=== PATIENT | female | born 1960 | race Caucasian/White ===

== ENCOUNTER 2019-05-01 03:37 | Inpatient (IN) | payer OTHER ==
[2019-05-01 04:44] VITALS: BMI 23.0
[2019-05-01] MEDS ORDERED: ACETAMINOPHEN 1000 MG/100 ML VIAL (NON FORMULARY) IVPB ONE (05:31)
[2019-05-01] MEDS ORDERED: SODIUM CHLORIDE 1,000 ML IV STA (05:31)
[2019-05-01] MEDS ORDERED: ONDANSETRON 4 MG/2 ML VIAL IVPB ONE (05:57)
--- NOTE | 2019-05-01 05:57 | PDOC ---
Attending Attestation - Resident Resident Name: Lake Ferrari - ED Attending Attestation I have performed the following: I have examined & evaluated the patient, The case was reviewed & discussed with the resident, I agree w/resident's findings & plan, Exceptions are as noted - HPI HPI: 05/01/19 05:54 58 F with h/o hypothyroid presenting with R sided abdominal and flank pain. Pt states that she awoke suddenly this morning with pain in her R upper abdomen radiating around her R side to her R flank. Endorses nausea without vomiting. Pt states she had a fever of 102 last night but took tylenol. Denies diarrhea/ constipation. Denies CP/SOB. Denies dysuria. Only previous surgery was a hysterectomy. - Physicial Exam PE: 05/01/19 05:56 "GENERAL: Awake, alert, and fully oriented, in no acute distress. HEAD: No signs of trauma EYES: PERRLA, EOMI, sclera anicteric, conjunctiva clear ENT: Auricles normal inspection, hearing grossly normal, nares patent, oropharynx clear without exudates. Moist mucosa NECK: Nontender, no stepoffs, Normal ROM, supple, no lymphadenopathy, JVD, or masses LUNGS: Breath sounds equal, clear to auscultation bilaterally. No wheezes, and no crackles HEART: Regular rate and rhythm, normal S1 and S2, no murmurs, rubs or gallops ABDOMEN: + RUQ TTP, + RLQ TTP, normoactive bowel sounds. No guarding, no rebound. No masses EXTREMITIES: Normal range of motion, no edema. No clubbing or cyanosis. No cords, erythema, or tenderness NEUROLOGICAL: Cranial nerves II through XII intact. 5/5 strength and sensation in all extremities, Normal speech, normal gait, normal cerebellar function SKIN: Warm, Dry, normal turgor, no rashes or lesions noted. - Medical Decision Making 05/01/19 05:56 58 F with R sided abdominal pain. Tender in both RLQ and RUQ, though more pronounced in RUQ. Will r/o cholecystitis. Also consider appendicitis. - Labs, UA - RUQ sono - CT if indicated - IVF, pain control
[2019-05-01] MEDS ORDERED: ACETAMINOPHEN INJECTION 100 ML IVPB ONE (06:05)
[2019-05-01] MEDS ORDERED: ONDANSETRON 4 MG/2 ML VIAL ONE (06:05)
[2019-05-01 06:30] LABS: BASO % 0.4 % (0-2.0); EOS % 0.3 % (0-4.5); HEMATOCRIT 44.9 % (32.4-45.2); HEMOGLOBIN 14.9 GM/dL (10.7-15.3); LYMPH % 15.3 % (8-40); MCH 29.2 pg (25.7-33.7); MCHC 33.2 g/dl (32.0-36.0); MEAN CELL VOLUME 88.1 fl (80-96); MEAN PLT VOLUME 10.1 fl (7.5-11.1); MONO % 7.7 % (3.8-10.2); NEUT % 76.3 % (42.8-82.8); PLATELET COUNT 189 K/MM3 (134-434); RDW 13.5 % (11.6-15.6)
[2019-05-01 06:43] LABS: ACTIVATED PTT 35.1 SECONDS (25.2-36.5)
[2019-05-01 06:58] LABS: ALBUMIN 4.5 g/dl (3.4-5.0); BILIRUBIN,TOTAL 1.3 mg/dL (0.2-1); BLOOD UREA NITROGEN 14.2 mg/dL (7-18); CALCIUM 9.4 mg/dL (8.5-10.1); CREATININE 0.9 mg/dL (0.55-1.3); POTASSIUM 3.7 mmol/L (3.5-5.1); TOT PROT 7.9 g/dl (6.4-8.2)
--- NOTE | 2019-05-01 07:20 | PDOC ---
*Physical Exam - Vital Signs Last Vital Signs Temp Pulse Resp BP Pulse Ox 98.0 F 62 18 120/62 99 05/01/19 04:37 05/01/19 04:37 05/01/19 04:37 05/01/19 04:37 05/01/19 04:37 - Physical Exam General Appearance: Yes: Nourished, Appropriately Dressed. No: Apparent Distress HEENT: positive: EOMI, AALIYAH, Normal Voice, Symmetrical. negative: Scleral Icterus (R), Scleral Icterus (L) Neck: positive: Normal Thyroid, Supple. negative: Decreased range of motion, Lymphadenopathy (R), Lymphadenopathy (L) Respiratory/Chest: positive: Lungs Clear, Normal Breath Sounds. negative: Respiratory Distress, Accessory Muscle Use, Crackles, Rales, Rhonchi Cardiovascular: positive: Regular Rhythm, Regular Rate Gastrointestinal/Abdominal: positive: Tender (RUQ tenderness, + Montiel'sign), Flat, Soft. negative: Guarding, Rebound, Hernia Musculoskeletal: positive: Normal Inspection. negative: CVA Tenderness Extremity: positive: Normal Capillary Refill, Normal Inspection Integumentary: positive: Normal Color, Dry, Warm Neurologic: positive: Fully Oriented, Alert, Normal Mood/Affect, Normal Response ED Treatment Course - LABORATORY CBC & Chemistry Diagram: 05/01/19 06:00 05/01/19 06:00 - ADDITIONAL ORDERS Additional order review: Laboratory Results 05/01/19 05/01/19 05/01/19 06:00 06:00 06:00 PTT (Actin FS) 35.1 Sodium 141 Potassium 3.7 Chloride 105 Carbon Dioxide 28 Anion Gap 8 BUN 14.2 Creatinine 0.9 Est GFR (CKD-EPI)AfAm 82.84 Est GFR (CKD-EPI)NonAf 71.48 Random Glucose 120 H Calcium 9.4 Total Bilirubin 1.3 H AST 15 ALT 18 Alkaline Phosphatase 104 Total Protein 7.9 Albumin 4.5 Lipase 116 05/01/19 06:00 RBC 5.10 MCV 88.1 MCHC 33.2 RDW 13.5 MPV 10.1 Neutrophils % 76.3 Lymphocytes % 15.3 D Monocytes % 7.7 Eosinophils % 0.3 Basophils % 0.4 - Medications Given in the ED: ED Medications Discontinued Medications Generic Name Dose Route Start Last Admin Trade Name Freq PRN Reason Stop Dose Admin Acetaminophen 1,000 mg 05/01/19 05:31 05/01/19 06:16 Ofirmev Injection - IVPB 05/01/19 05:32 1,000 mg ONCE ONE Administration Sodium Chloride 1,000 mls @ 1,000 mls/hr 05/01/19 05:31 05/01/19 06:16 Normal Saline - IV 05/01/19 06:30 1,000 mls/hr ASDIR STA Administration Ondansetron HCl 4 mg 05/01/19 05:57 05/01/19 06:17 Zofran Injection IVPB 05/01/19 05:58 4 mg ONCE ONE Administration Medical Decision Making - Medical Decision Making 05/01/19 07:18 Signed out to me by Dr. Ferrari. Patient is a 58F presenting with R-sided abdominal pain with nausea and no vomiting. Tender to RUQ/RLQ. Concerned for pyelo/renal stones/gallbladder/liver pathology. Bedside US shows evidence of GB wall thickening with no stones. Needs formal RUQ US for complete evaluation of GB. If negative, needs CT abd/ pelvis with contrast. Labs notable for Tbili elevated to 1.3, remaining labs WNL. 05/01/19 09:03 RUQ US: The liver has an unremarkable size, shape and echotexture, without sonographically detected focal abnormality. There is no intrahepatic bile or duct dilatation. There is normal antegrade portal venous flow. There are multiple tiny echogenic foci within the gallbladder which could represent tiny gallstones. These do not demonstrate definite posterior acoustic shadowing. There is no gallbladder wall thickening or pericholecystic fluid. The sonographic Montiel's sign was negative. The common bile duct measures 0.4 cm in diameter. There is no ascites. The right kidney measures 9.1 x 5.0 x 3.8 cm in diameter and has not unremarkable sonographic appearance without sonographically detected focal abnormality. Impression: 1. Multiple tiny echogenic foci within the gallbladder lumen which could represent tiny gallstones. 2. Otherwise, unremarkable right upper quadrant abdominal sonogram Patient at CT scan for further evaluation. No elevated WBC or fever. However, concern still high for cholecystitis given + bedside sonographic Montiel's sign and presence of possible stones. 05/01/19 09:05 UA shows 2+ ketones, 1+ blood, + nitrites, >8000 bacteria consistent with UTI. Will treat for UTI pending CT read. 05/01/19 10:09 CT shows evidence of stones with acute cholecystitis. Discussed surgical planning with Dr. Davis, NPO after midnight, IVF, ABx, and admission to Hospitalist. Discussed admission to Med-Surg with Dr. Layton under Dr. Yousif. Will start IV Zosyn 4.5mg. Discharge - Discharge Information Problems reviewed: Yes Clinical Impression/Diagnosis: Acute calculous cholecystitis Condition: Stable - Admission Yes - Follow up/Referral - Patient Discharge Instructions - Post Discharge Activity
[2019-05-01 08:20] LABS: INR 1.07 (0.83-1.09); PROTHROMBIN TIME (PATIENT) 12.6 SEC (9.7-13.0)
[2019-05-01 08:22] LABS: EPI CELLS 1.3 /HPF (0-5/HPF); HYALINE CASTS 1 /lpf (0-8); URINE APPEARANCE CLEAR; URINE BACTERIA 8587.6 /hpf (NEGATIVE); URINE BILIRUBIN NEGATIVE (NEGATIVE); URINE COLOR YELLOW; URINE GLUCOSE (UA) NEGATIVE (NEGATIVE); URINE KETONE 2+ (NEGATIVE); URINE LEUK ESTERASE NEGATIVE (NEGATIVE); URINE NITRITE POSITIVE (NEGATIVE); URINE PROTEIN NEGATIVE (NEGATIVE); URINE RBC 5 /hpf (0-4); URINE UROBILINOGEN 0.2 mg/dL (0.2-1.0); URINE WBC 2 /hpf (0-5)
[2019-05-01 08:36] LABS: HCG,QUALITATIVE URINE Negative
--- NOTE | 2019-05-01 08:52 | PDOC ---
*Physical Exam - Vital Signs Last Vital Signs Temp Pulse Resp BP Pulse Ox 98.0 F 62 18 120/62 99 05/01/19 04:37 05/01/19 04:37 05/01/19 04:37 05/01/19 04:37 05/01/19 04:37 - Physical Exam Comments: 05/01/19 08:49 Awake alert no acute distress lungs are clear bilaterally heart is regular without murmurs rubs or gallops abdomen is noted for right upper quadrant tenderness there is no CVA tenderness otherwise nontender no rebound no guarding awake alert oriented x3 ED Treatment Course - LABORATORY CBC & Chemistry Diagram: 05/01/19 06:00 05/01/19 06:00 - ADDITIONAL ORDERS Additional order review: Laboratory Results 05/01/19 05/01/19 05/01/19 08:04 06:00 06:00 PT with INR INR PTT (Actin FS) Sodium 141 Potassium 3.7 Chloride 105 Carbon Dioxide 28 Anion Gap 8 BUN 14.2 Creatinine 0.9 Est GFR (CKD-EPI)AfAm 82.84 Est GFR (CKD-EPI)NonAf 71.48 Random Glucose 120 H Calcium 9.4 Total Bilirubin 1.3 H AST 15 ALT 18 Alkaline Phosphatase 104 Total Protein 7.9 Albumin 4.5 Lipase 116 Urine Color Yellow Urine Appearance Clear Urine pH 6.0 Ur Specific [place] 1.022 Urine Protein Negative Urine Glucose (UA) Negative Urine Ketones 2+ H Urine Blood 1+ H Urine Nitrite Positive H Urine Bilirubin Negative Urine Urobilinogen 0.2 Ur Leukocyte Esterase Negative Urine WBC (Auto) 2 Urine RBC (Auto) 5 Urine Casts (Auto) 1 U Epithel Cells (Auto) 1.3 Urine Bacteria (Auto) 8587.6 Urine HCG, Qual Negative 05/01/19 06:00 PT with INR 12.60 INR 1.07 PTT (Actin FS) 35.1 Sodium Potassium Chloride Carbon Dioxide Anion Gap BUN Creatinine Est GFR (CKD-EPI)AfAm Est GFR (CKD-EPI)NonAf Random Glucose Calcium Total Bilirubin AST ALT Alkaline Phosphatase Total Protein Albumin Lipase Urine Color Urine Appearance Urine pH Ur Specific [place] Urine Protein Urine Glucose (UA) Urine Ketones Urine Blood Urine Nitrite Urine Bilirubin Urine Urobilinogen Ur Leukocyte Esterase Urine WBC (Auto) Urine RBC (Auto) Urine Casts (Auto) U Epithel Cells (Auto) Urine Bacteria (Auto) Urine HCG, Qual 05/01/19 06:00 RBC 5.10 MCV 88.1 MCHC 33.2 RDW 13.5 MPV 10.1 Neutrophils % 76.3 Lymphocytes % 15.3 D Monocytes % 7.7 Eosinophils % 0.3 Basophils % 0.4 - Medications Given in the ED: ED Medications Discontinued Medications Generic Name Dose Route Start Last Admin Trade Name [place] PRN Reason Stop Dose Admin Acetaminophen 1,000 mg 05/01/19 05:31 05/01/19 06:16 Ofirmev Injection - IVPB 05/01/19 05:32 1,000 mg ONCE ONE Administration Sodium Chloride 1,000 mls @ 1,000 mls/hr 05/01/19 05:31 05/01/19 06:16 Normal Saline - IV 05/01/19 06:30 1,000 mls/hr ASDIR STA Administration Ondansetron HCl 4 mg 05/01/19 05:57 05/01/19 06:17 Zofran Injection IVPB 05/01/19 05:58 4 mg ONCE ONE Administration Medical Decision Making - Medical Decision Making 05/01/19 08:50 58-year-old female here today complaining of right upper quadrant pain and nausea. Signed out to me by the night team ice and care of the patient at 7 AM was pending an ultrasound. I did a unofficial screening bedside ultrasound which demonstrated a normal wall there was trace wall edema however the patient did have stones and sludge mildly distended gallbladder measuring 10 x 3 cm CBD was normal at 5 mm. She did have a sonographic Montiel's radiology ultrasound is pending labs were noted to have a mild T bili elevation otherwise LFTs were normal there is no white count CT abdomen pelvis was added to the patient has a history of multiple abdominal surgeries. Will likely consult surgery for possible cholecystitis based on ultrasound and exam findings 05/01/19 14:23 radiology ultrasound shows cholelithiasis. ct a/p confirms possible cholecystitis. pt given zosyn, consulted DR Davis request NPO post midnight. OR day following. Discharge - Discharge Information Problems reviewed: Yes Clinical Impression/Diagnosis: Acute calculous cholecystitis Condition: Stable - Follow up/Referral - Patient Discharge Instructions - Post Discharge Activity
[2019-05-01] MEDS ORDERED: LEVOTHYROXINE NA 75 MCG TABLET (FP) PO SCH (10:00)
[2019-05-01] MEDS ORDERED: PIPERACILLIN/TAZOB 4.5 GM 4.5 GM in DEXTROSE 5%-WATER 100 ML IVPB ONE (10:07)
[2019-05-01] MEDS ORDERED: morphine CARPU-JECT 4 MG/1 ML DISP.SYRIN IVPUSH ONE (10:14)
[2019-05-01] MEDS ORDERED: morphine SULFATE 4 MG/ML VIAL ONE (10:21)
[2019-05-01] MEDS ORDERED: PIPERACILLIN/TAZOB 4.5 GM 4.5 GM/100 ML BAG IVPB ONE (10:22)
--- NOTE | 2019-05-01 10:25 | CONSULT ---
- Consultation REQUESTING PROVIDER: Sp Nunes MD CONSULT REQUEST: We have been asked to surgically evaluate this patient for symptomatic biliary tract disease. PCP:Wero Patel HISTORY OF PRESENT ILLNESS: KARLI who is a 58 y/o female who presented to the [facility] ED w/ right sided abdominal and flank pain. Pt states that she awoke suddenly this morning with pain in her right upper abdomen radiating around her R side to her R flank. She hasnausea without vomiting. Pt states she had a fever of 102 last night but took tylenol. Denies diarrhea/constipation. Denies CP/SOB. Denies dysuria. Only previous surgery was a hysterectomy. She denies dark urine/light stools and has no other GI//[employer] c/o. PMHx: thyroid disease/NIDDM/GERD PSHx: LUCIAN Home Medications Medication Instructions Recorded Levothyroxine [Synthroid -] 75 mcg PO DAILY 12/05/12 Metoclopramide HCl 5 mg PO TID PRN 05/01/19 Pantoprazole Sodium [Protonix] 40 mg PO DAILY 05/01/19 Allergies Allergy/AdvReac Type Severity Reaction Status Date / Time No Known Allergies Allergy Verified 05/01/19 04:41 REVIEW OF SYSTEMS: CONSTITUTIONAL: Absent: fever, chills, diaphoresis, generalized weakness, malaise, loss of appetite, weight change CARDIOVASCULAR: Absent: chest pain, syncope, palpitations, irregular heart rate, lightheadedness , peripheral edema RESPIRATORY: Absent: cough, shortness of breath, dyspnea with exertion, wheezing, stridor, hemoptysis GASTROINTESTINAL: Present: abdominal pain, abdominal distension, nausea, vomiting, GENITOURINARY: Absent: dysuria, frequency, urgency, hesitancy, hematuria, flank pain, genital pain MUSCULOSKELETAL: Absent: myalgia, arthralgia, joint swelling, back pain, neck pain SKIN: Absent: rash, itching, pallor HEMATOLOGIC/IMMUNOLOGIC: Absent: easy bleeding, easy bruising, lymphadenopathy NEUROLOGIC: Absent: headache, focal weakness, paresthesias, dizziness, unsteady gait, seizure, mental status changes, bladder or bowel incontinence PSYCHIATRIC: Absent: anxiety, depression, suicidal or homicidal ideation, hallucinations. PHYSICAL EXAM: GENERAL: Awake, alert, and fully oriented, in no acute distress. HEAD: Normal with no signs of trauma. EYES: , sclera anicteric, conjunctiva clear. NECK: Normal ROM, supple without lymphadenopathy, JVD, or masses. ABDOMEN: Soft, tender RUQ, not distended, normoactive bowel sounds, no guarding , no rebound, no masses. No organomegaly. No hernias. MUSCULOSKELETAL: Normal ROM at all joints. No bony deformities or tenderness. No CVA tenderness. UPPER EXTREMITIES: 2+ pulses, warm, well-perfused. No cyanosis. Cap refill <2 seconds. No peripheral edema. LOWER EXTREMITIES: 2+ pulses, warm, well-perfused. No calf tenderness. No peripheral edema. NEUROLOGICAL: Normal speech, gait not observed. PSYCH: Cooperative. Good eye contact. Appropriate mood and affect. SKIN: Warm, dry, normal turgor, no rashes or lesions noted. Vital Signs Temperature 97.6 F 05/01/19 09:59 Pulse Rate 72 05/01/19 09:59 Respiratory Rate 16 05/01/19 09:59 Blood Pressure 132/79 05/01/19 09:59 O2 Sat by Pulse Oximetry (%) 100 05/01/19 09:59 Lab Results WBC 9.0 K/mm3 (4.0-10.0) 05/01/19 06:00 RBC 5.10 M/mm3 (3.60-5.2) 05/01/19 06:00 Hgb 14.9 GM/dL (10.7-15.3) 05/01/19 06:00 Hct 44.9 % (32.4-45.2) 05/01/19 06:00 MCV 88.1 fl (80-96) 05/01/19 06:00 MCHC 33.2 g/dl (32.0-36.0) 05/01/19 06:00 RDW 13.5 % (11.6-15.6) 05/01/19 06:00 Plt Count 189 K/MM3 (134-434) 05/01/19 06:00 Sodium 141 mmol/L (136-145) 05/01/19 06:00 Potassium 3.7 mmol/L (3.5-5.1) 05/01/19 06:00 Chloride 105 mmol/L (98-107) 05/01/19 06:00 Carbon Dioxide 28 mmol/L (21-32) 05/01/19 06:00 Anion Gap 8 MMOL/L (8-16) 05/01/19 06:00 BUN 14.2 mg/dL (7-18) 05/01/19 06:00 Creatinine 0.9 mg/dL (0.55-1.3) 05/01/19 06:00 Random Glucose 120 mg/dL (74-106) H 05/01/19 06:00 Calcium 9.4 mg/dL (8.5-10.1) 05/01/19 06:00 Blood Type A POSITIVE 05/01/19 06:00 Antibody Screen Negative 05/01/19 06:00 INR 1.07 (0.83-1.09) 05/01/19 06:00 CT scan a/p and US abdomen reviewed IMP: acute cholecystitis/cholellithiasis PLAN: NPO/IVF/IVABS and plan for lap samuel possible open 05/01/19; HIDA scan is not needed; I discussed this with the patient and her daughter in [place]. Federico Davis MD FACS
[2019-05-01] MEDS ORDERED: ONDANSETRON 4 MG/2 ML VIAL IVPUSH PRN (10:43)
--- NOTE | 2019-05-01 10:43 | CONSULT ---
Consultation: REQUESTING PROVIDER: CONSULT REQUEST: We have been asked to medically evaluate this patient for ( specify). HISTORY OF PRESENT ILLNESS: REVIEW OF SYSTEMS: CONSTITUTIONAL: Absent: fever, chills, diaphoresis, generalized weakness, malaise, loss of appetite, weight change HEENT: Absent: rhinorrhea, nasal congestion, throat pain, throat swelling, difficulty swallowing, mouth swelling, ear pain, eye pain, visual changes CARDIOVASCULAR: Absent: chest pain, syncope, palpitations, irregular heart rate, lightheadedness , peripheral edema RESPIRATORY: Absent: cough, shortness of breath, dyspnea with exertion, orthopnea, wheezing, stridor, hemoptysis GASTROINTESTINAL: Absent: abdominal pain, abdominal distension, nausea, vomiting, diarrhea, constipation, melena, hematochezia GENITOURINARY: Absent: dysuria, frequency, urgency, hesitancy, hematuria, flank pain, genital pain MUSCULOSKELETAL: Absent: myalgia, arthralgia, joint swelling, back pain, neck pain SKIN: Absent: rash, itching, pallor HEMATOLOGIC/IMMUNOLOGIC: Absent: easy bleeding, easy bruising, lymphadenopathy, frequent infections ENDOCRINE: Absent: unexplained weight gain, unexplained weight loss, heat intolerance, cold intolerance NEUROLOGIC: Absent: headache, focal weakness or paresthesias, dizziness, unsteady gait, seizure, mental status changes, bladder or bowel incontinence PSYCHIATRIC: Absent: anxiety, depression, suicidal or homicidal ideation, hallucinations. PHYSICAL EXAMINATION Vital Signs - 24 hr 05/01/19 05/01/19 04:37 09:59 Temperature 98.0 F 97.6 F Pulse Rate 62 Pulse Rate [ 72 Left] Respiratory 18 16 Rate Blood Pressure 120/62 Blood Pressure 132/79 [Right Arm] O2 Sat by Pulse 99 100 Oximetry (%) GENERAL: Awake, alert, and fully oriented, in no acute distress. HEAD: Normal with no signs of trauma. EYES: Pupils equal, round and reactive to light, extraocular movements intact, sclera anicteric, conjunctiva clear. No lid lag. EARS, NOSE, THROAT: Ears normal, nares patent, oropharynx clear without exudates. Moist mucous membranes. NECK: Normal range of motion, supple without lymphadenopathy, JVD, or masses. LUNGS: Breath sounds equal, clear to auscultation bilaterally. No wheezes, and no crackles. No accessory muscle use. HEART: Regular rate and rhythm, normal S1 and S2 without murmur, rub or gallop. ABDOMEN: Soft, nontender, not distended, normoactive bowel sounds, no guarding, no rebound, no masses. No hepatomegaly or splenomegaly. MUSCULOSKELETAL: Normal range of motion at all joints. No bony deformities or tenderness. No CVA tenderness. UPPER EXTREMITIES: 2+ pulses, warm, well-perfused. No cyanosis. No clubbing. Cap refill <2 seconds. No peripheral edema. LOWER EXTREMITIES: 2+ pulses, warm, well-perfused. No calf tenderness. No peripheral edema. NEUROLOGICAL: Cranial nerves II-XII intact. Normal speech. Normal gait. PSYCHIATRIC: Cooperative. Good eye contact. Appropriate mood and affect. SKIN: Warm, dry, normal turgor, no rashes or lesions noted. Laboratory Results - last 24 hr 05/01/19 05/01/19 05/01/19 06:00 06:00 06:00 WBC 9.0 RBC 5.10 Hgb 14.9 Hct 44.9 MCV 88.1 MCH 29.2 MCHC 33.2 RDW 13.5 Plt Count 189 MPV 10.1 Absolute Neuts (auto) 6.8 Neutrophils % 76.3 Lymphocytes % 15.3 D Monocytes % 7.7 Eosinophils % 0.3 Basophils % 0.4 Nucleated RBC % 0 PT with INR 12.60 INR 1.07 PTT (Actin FS) 35.1 Sodium 141 Potassium 3.7 Chloride 105 Carbon Dioxide 28 Anion Gap 8 BUN 14.2 Creatinine 0.9 Est GFR (CKD-EPI)AfAm 82.84 Est GFR (CKD-EPI)NonAf 71.48 Random Glucose 120 H Calcium 9.4 Total Bilirubin 1.3 H AST 15 ALT 18 Alkaline Phosphatase 104 Total Protein 7.9 Albumin 4.5 Lipase Urine Color Urine Appearance Urine pH Ur Specific [place] Urine Protein Urine Glucose (UA) Urine Ketones Urine Blood Urine Nitrite Urine Bilirubin Urine Urobilinogen Ur Leukocyte Esterase Urine WBC (Auto) Urine RBC (Auto) Urine Casts (Auto) U Epithel Cells (Auto) Urine Bacteria (Auto) Urine HCG, Qual Blood Type Antibody Screen 05/01/19 05/01/19 05/01/19 06:00 06:00 08:04 WBC RBC Hgb Hct MCV MCH MCHC RDW Plt Count MPV Absolute Neuts (auto) Neutrophils % Lymphocytes % Monocytes % Eosinophils % Basophils % Nucleated RBC % PT with INR INR PTT (Actin FS) Sodium Potassium Chloride Carbon Dioxide Anion Gap BUN Creatinine Est GFR (CKD-EPI)AfAm Est GFR (CKD-EPI)NonAf Random Glucose Calcium Total Bilirubin AST ALT Alkaline Phosphatase Total Protein Albumin Lipase 116 Urine Color Yellow Urine Appearance Clear Urine pH 6.0 Ur Specific [place] 1.022 Urine Protein Negative Urine Glucose (UA) Negative Urine Ketones 2+ H Urine Blood 1+ H Urine Nitrite Positive H Urine Bilirubin Negative Urine Urobilinogen 0.2 Ur Leukocyte Esterase Negative Urine WBC (Auto) 2 Urine RBC (Auto) 5 Urine Casts (Auto) 1 U Epithel Cells (Auto) 1.3 Urine Bacteria (Auto) 8587.6 Urine HCG, Qual Negative Blood Type A POSITIVE Antibody Screen Negative ASSESSMENT/PLAN: Dispo: We will continue to follow the patient. Thank you for this consultative opportunity. ATTENDING PHYSICIAN STATEMENT I saw and evaluated the patient. I reviewed the resident's note and discussed the case with the resident. I agree with the resident's findings and plan as documented. SUBJECTIVE: OBJECTIVE: ASSESSMENT AND PLAN:
--- NOTE | 2019-05-01 10:43 | HP ---
CHIEF COMPLAINT: RUQ abdominal pain HISTORY OF PRESENT ILLNESS: 58 year old female with a past medical history of hypothyroidism presents to the hospital for acute, 04/28, sharp right upper quadrant abdominal pain that began last night. Reports she had been experiencing mild RUQ pain for several months exacerbated by eating. States that the pain used to resolve on its own, however this time it was so severe and did not remit on its own. Reports severe nausea and dry heaves without overt vomiting. Denies chest pain, SOB, nausea, vomiting, diarrhea, fevers, chills. Denies recent travel or sick contacts. Reports that since coming in, her pain has notably improved. ER course was notable for: (1) CT abdomen/pelvis shows cholelithiasis with possible cholecystitis (2) (3) Recent Travel: denies PAST MEDICAL HISTORY: hypothyroidism PAST SURGICAL HISTORY: denies Social History: Smoking: denies Alcohol: denies Drugs: denies Family History: reported history of heart disease and DM in family, although unclear on specifics Allergies No Known Allergies Allergy (Verified 05/01/19 04:41) HOME MEDICATIONS: Home Medications Medication Instructions Recorded Levothyroxine [Synthroid -] 75 mcg PO DAILY 12/05/12 Metoclopramide HCl 5 mg PO TID PRN 05/01/19 Pantoprazole Sodium [Protonix] 40 mg PO DAILY 05/01/19 REVIEW OF SYSTEMS CONSTITUTIONAL: Absent: fever, chills, diaphoresis, generalized weakness, malaise, loss of appetite, weight change HEENT: Absent: rhinorrhea, nasal congestion, throat pain, throat swelling, difficulty swallowing, mouth swelling, ear pain, eye pain, visual changes CARDIOVASCULAR: Absent: chest pain, syncope, palpitations, irregular heart rate, lightheadedness , peripheral edema RESPIRATORY: Absent: cough, shortness of breath, dyspnea with exertion, orthopnea, wheezing, stridor, hemoptysis GASTROINTESTINAL: abdominal pain Absent:, abdominal distension, nausea, vomiting, diarrhea, constipation, melena , hematochezia GENITOURINARY: Absent: dysuria, frequency, urgency, hesitancy, hematuria, flank pain, genital pain MUSCULOSKELETAL: Absent: myalgia, arthralgia, joint swelling, back pain, neck pain SKIN: Absent: rash, itching, pallor HEMATOLOGIC/IMMUNOLOGIC: Absent: easy bleeding, easy bruising, lymphadenopathy, frequent infections ENDOCRINE: Absent: unexplained weight gain, unexplained weight loss, heat intolerance, cold intolerance NEUROLOGIC: Absent: headache, focal weakness or paresthesias, dizziness, unsteady gait, seizure, mental status changes, bladder or bowel incontinence PSYCHIATRIC: Absent: anxiety, depression, suicidal or homicidal ideation, hallucinations. PHYSICAL EXAMINATION Vital Signs - 24 hr 05/01/19 05/01/19 04:37 09:59 Temperature 98.0 F 97.6 F Pulse Rate 62 Pulse Rate [ 72 Left] Respiratory 18 16 Rate Blood Pressure 120/62 Blood Pressure 132/79 [Right Arm] O2 Sat by Pulse 99 100 Oximetry (%) GENERAL: A&Ox3, no acute distress EYES: PERRLA, EOMI ENT: Moist mucus membranes NECK: No JVD LUNGS: CTA, no wheezes HEART: RRR, no murmurs ABDOMEN: Soft, tender to palpation in the RUQ, bernal sign positive, BS present MUSCULOSKELETAL: No CVA Tenderness EXTREMITIES: 2+ pulses, no edema. NEUROLOGICAL: Cranial nerves II-XII intact. Laboratory Results - last 24 hr 05/01/19 05/01/19 05/01/19 06:00 06:00 06:00 WBC 9.0 RBC 5.10 Hgb 14.9 Hct 44.9 MCV 88.1 MCH 29.2 MCHC 33.2 RDW 13.5 Plt Count 189 MPV 10.1 Absolute Neuts (auto) 6.8 Neutrophils % 76.3 Lymphocytes % 15.3 D Monocytes % 7.7 Eosinophils % 0.3 Basophils % 0.4 Nucleated RBC % 0 PT with INR 12.60 INR 1.07 PTT (Actin FS) 35.1 Sodium 141 Potassium 3.7 Chloride 105 Carbon Dioxide 28 Anion Gap 8 BUN 14.2 Creatinine 0.9 Est GFR (CKD-EPI)AfAm 82.84 Est GFR (CKD-EPI)NonAf 71.48 Random Glucose 120 H Calcium 9.4 Total Bilirubin 1.3 H AST 15 ALT 18 Alkaline Phosphatase 104 Total Protein 7.9 Albumin 4.5 Lipase Urine Color Urine Appearance Urine pH Ur Specific [place] Urine Protein Urine Glucose (UA) Urine Ketones Urine Blood Urine Nitrite Urine Bilirubin Urine Urobilinogen Ur Leukocyte Esterase Urine WBC (Auto) Urine RBC (Auto) Urine Casts (Auto) U Epithel Cells (Auto) Urine Bacteria (Auto) Urine HCG, Qual Blood Type Antibody Screen 05/01/19 05/01/1905/01/19 06:00 06:00 08:04 WBC RBC Hgb Hct MCV MCH MCHC RDW Plt Count MPV Absolute Neuts (auto) Neutrophils % Lymphocytes % Monocytes % Eosinophils % Basophils % Nucleated RBC % PT with INR INR PTT (Actin FS) Sodium Potassium Chloride Carbon Dioxide Anion Gap BUN Creatinine Est GFR (CKD-EPI)AfAm Est GFR (CKD-EPI)NonAf Random Glucose Calcium Total Bilirubin AST ALT Alkaline Phosphatase Total Protein Albumin Lipase 116 Urine Color Yellow Urine Appearance Clear Urine pH 6.0 Ur Specific [place] 1.022 Urine Protein Negative Urine Glucose (UA) Negative Urine Ketones 2+ H Urine Blood 1+ H Urine Nitrite Positive H Urine Bilirubin Negative Urine Urobilinogen 0.2 Ur Leukocyte Esterase Negative Urine WBC (Auto) 2 Urine RBC (Auto) 5 Urine Casts (Auto) 1 U Epithel Cells (Auto) 1.3 Urine Bacteria (Auto) 8587.6 Urine HCG, Qual Negative Blood Type A POSITIVE Antibody Screen Negative ASSESSMENT/PLAN: 58 year old female with a past medical history of hypothyroidism presents to the hospital for acute, 04/28, sharp right upper quadrant abdominal pain that began last night. #Acute Cholecystitis: seen on CT with positive bernal sign -keep NPO -zosyn 3.375 q6h -Dr. Davis consulted -IVF LR 100cc/hr -pain control morphine 2mg Q4 PRN and tylenol -zofran for nausea #Hypothyroidism -continue synthroid #FEN -LR @ 100cc/hr -replete lytes as necessary -NPO for now pending surgery evaluation #Prophylaxis -SCDs #Disposition -admit med surg Visit type - Emergency Visit Emergency Visit: Yes ED Registration Date: 05/01/19 Care time: The patient presented to the Emergency Department on the above date and was hospitalized for further evaluation of their emergent condition. - New Patient This patient is new to me today: Yes Date on this admission: 05/01/19 - Critical Care Critical Care patient: No ATTENDING PHYSICIAN STATEMENT I saw and evaluated the patient. I reviewed the resident's note and discussed the case with the resident. I agree with the resident's findings and plan as documented. SUBJECTIVE: OBJECTIVE: ASSESSMENT AND PLAN:
[2019-05-01] MEDS ORDERED: PANTOPRAZOLE SODIUM 40 MG/100 ML BAG IVPB ONE (11:31)
[2019-05-01] MEDS: LACTATED RINGERS SOLUTION 1,000 ML IV SCH ×2 (11:36→19:38)
[2019-05-01] MEDS: PANTOPRAZOLE 40 MG TABLET (FP) PO SCH (11:36)
[2019-05-01] MEDS: MORPHINE SULFATE 2 MG/ML VIAL IVPUSH PRN ×2 (12:54→17:15)
--- NOTE | 2019-05-01 14:55 | PN ---
Teaching Attending Note Name of Resident: Alfred Layton ATTENDING PHYSICIAN STATEMENT I saw and evaluated the patient. I reviewed the resident's note and discussed the case with the resident. I agree with the resident's findings and plan as documented. SUBJECTIVE: Patient is a 58yo female with a past medical history of hypothyroidism presents to the hospital for having RUQ pain that began last night after eating beans and cheese. OBJECTIVE: Vital Signs Temperature 97.6 F 05/01/19 12:22 Pulse Rate 60 05/01/19 12:22 Respiratory Rate 16 05/01/19 12:22 Blood Pressure 143/76 05/01/19 12:22 O2 Sat by Pulse Oximetry (%) 100 05/01/19 12:22 GENERAL: The patient is awake, alert, and fully oriented, in no acute distress. HEAD: Normal with no signs of trauma. EYES: PERRL, extraocular movements intact, sclera anicteric, conjunctiva clear. ENT: Ears normal, oropharynx clear without exudates, moist mucous membranes. NECK: Trachea midline, full range of motion, supple. LUNGS: Breath sounds equal, clear to auscultation bilaterally, no wheezes, no crackles, no accessory muscle use. HEART: Regular rate and rhythm, S1, S2 without murmur, rub or gallop. ABDOMEN: Soft, RUQ pain ,+BS , no guarding, no rebound, no hepatosplenomegaly, no masses. EXTREMITIES: 2+ pulses, warm, well-perfused, no edema. NEUROLOGICAL: Cranial nerves II through XII grossly intact. Normal speech, gait not observed. PSYCH: Normal mood, normal affect. SKIN: Warm, dry, normal turgor, no rashes or lesions noted CBCD WBC 9.0 K/mm3 (4.0-10.0) 05/01/19 06:00 RBC 5.10 M/mm3 (3.60-5.2) 05/01/19 06:00 Hgb 14.9 GM/dL (10.7-15.3) 05/01/19 06:00 Hct 44.9 % (32.4-45.2) 05/01/19 06:00 MCV 88.1 fl (80-96) 05/01/19 06:00 MCHC 33.2 g/dl (32.0-36.0) 05/01/19 06:00 RDW 13.5 % (11.6-15.6) 05/01/19 06:00 Plt Count 189 K/MM3 (134-434) 05/01/19 06:00 MPV 10.1 fl (7.5-11.1) 05/01/19 06:00 CMP Sodium 141 mmol/L (136-145) 05/01/19 06:00 Potassium 3.7 mmol/L (3.5-5.1) 05/01/19 06:00 Chloride 105 mmol/L (98-107) 05/01/19 06:00 Carbon Dioxide 28 mmol/L (21-32) 05/01/19 06:00 Anion Gap 8 MMOL/L (8-16) 05/01/19 06:00 BUN 14.2 mg/dL (7-18) 05/01/19 06:00 Creatinine 0.9 mg/dL (0.55-1.3) 05/01/19 06:00 Random Glucose 120 mg/dL (74-106) H 05/01/19 06:00 Calcium 9.4 mg/dL (8.5-10.1) 05/01/19 06:00 Total Bilirubin 1.3 mg/dL (0.2-1) H 05/01/19 06:00 AST 15 U/L (15-37) 05/01/19 06:00 ALT 18 U/L (13-61) 05/01/19 06:00 Alkaline Phosphatase 104 U/L (45-117) 05/01/19 06:00 Total Protein 7.9 g/dl (6.4-8.2) 05/01/19 06:00 Albumin 4.5 g/dl (3.4-5.0) 05/01/19 06:00 Current Medications Generic Name Dose Route Start Last Admin Trade Name Freq PRN Reason Stop Dose Admin Acetaminophen 650 mg 05/01/19 10:43 Tylenol - PO Q4H PRN PAIN LEVEL 6-10 Lactated Ringer's 1,000 mls @ 100 mls/hr 05/01/19 10:45 05/01/19 11:36 Lactated Ringers Solution IV 05/02/19 20:44 100 mls/hr ASDIR LIZZY Administration Piperacillin Sod/Tazobactam 50 mls @ 100 mls/hr 05/01/19 15:00 Sod 3.375 gm/ Dextrose IVPB Q6H-IV [facility] Protocol Levothyroxine Sodium 75 mcg 05/02/19 07:00 Synthroid - PO DAILY@0700 [facility] Morphine Sulfate 2 mg 05/01/19 12:34 05/01/19 12:54 Morphine Sulfate IVPUSH 2 mg Q4H PRN Administration PAIN LEVEL 6-10 Ondansetron HCl 4 mg 05/01/19 10:43 Zofran Injection IVPUSH Q6H PRN NAUSEA Pantoprazole Sodium 40 mg 05/01/19 10:00 05/01/19 11:36 Protonix - PO 40 mg DAILY [facility] Administration Home Medications Medication Instructions Recorded Levothyroxine [Synthroid -] 75 mcg PO DAILY 12/05/12 Metoclopramide HCl 5 mg PO TID PRN 05/01/19 Pantoprazole Sodium [Protonix] 40 mg PO DAILY 05/01/19 ASSESSMENT AND PLAN: patient is a 58 year old female with a PMHx of hypothyroidism presents to the hospital for acute, 04/28, sharp right upper quadrant abdominal pain that began last night. #Acute Cholecystitis: keep NPO, zosyn 3.375 q6h, surgical cansult Dr. Davis , IVF LR 100cc/hr, going to OR in am , NPO after Midnight pain control morphine 2mg Q4 PRN and tylenol, zofran for nausea #Hypothyroidism: continue synthroid DVT Px: SCDs NPO after midnight
[2019-05-01] MEDS ORDERED: DEXTROSE 5%-WATER - 50 ML IVPB ONE (15:05)
[2019-05-01] MEDS ORDERED: PIPERACILLIN/TAZOBACTAM 3.375 GM VIAL IVPB ONE (15:05)
[2019-05-01] MEDS: PIPERACILLIN/TAZOB 3.375 GM 3.375 GM in DEXTROSE 5%-WATER - 50 ML IVPB SCH ×2 (15:08→20:17)
[2019-05-01] MEDS: ACETAMINOPHEN 325 MG TABLET (FP) PO PRN ×2 (19:48→23:59)
[2019-05-02] MEDS ORDERED: PIPERACILLIN/TAZOBACTAM 3.375 GM VIAL IVPB ONE ×2 (01:59→02:00)
[2019-05-02] MEDS ORDERED: DEXTROSE 5%-WATER - 50 ML IVPB ONE ×2 (01:59→02:01)
[2019-05-02] MEDS: PIPERACILLIN/TAZOB 3.375 GM 3.375 GM in DEXTROSE 5%-WATER - 50 ML IVPB SCH (02:39)
[2019-05-02] MEDS: MORPHINE SULFATE 2 MG/ML VIAL IVPUSH PRN ×2 (04:13→09:28)
[2019-05-02] MEDS ORDERED: LEVOTHYROXINE NA 75 MCG TABLET (FP) PO SCH (07:00)
[2019-05-02 08:24] LABS: HEMATOCRIT 42.9 % (32.4-45.2); HEMOGLOBIN 14.4 GM/dL (10.7-15.3); MCH 29.7 pg (25.7-33.7); MCHC 33.6 g/dl (32.0-36.0); MEAN CELL VOLUME 88.2 fl (80-96); MEAN PLT VOLUME 9.6 fl (7.5-11.1); PLATELET COUNT 178 K/MM3 (134-434); RBC 4.87 M/mm3 (3.60-5.2); RDW 13.5 % (11.6-15.6); WHITE BLOOD COUNT 10.5 K/mm3 (4.0-10.0)
[2019-05-02 08:56] LABS: BLOOD UREA NITROGEN 7.8 mg/dL (7-18); CALCIUM 8.7 mg/dL (8.5-10.1); CREATININE 0.8 mg/dL (0.55-1.3); POTASSIUM 3.6 mmol/L (3.5-5.1)
[2019-05-02] MEDS ORDERED: PIPERACILLIN/TAZOB 3.375 GM 3.375 GM in DEXTROSE 5%-WATER - 50 ML IVPB SCH (09:00)
[2019-05-02 09:09] LABS: INR 1.23 (0.83-1.09); PROTHROMBIN TIME (PATIENT) 14.5 SEC (9.7-13.0)
[2019-05-02] MEDS: PANTOPRAZOLE 40 MG TABLET (FP) PO SCH (09:09)
--- NOTE | 2019-05-02 09:33 | PN ---
Teaching Attending Note Name of Resident: Ana Arellano ATTENDING PHYSICIAN STATEMENT I saw and evaluated the patient. I reviewed the resident's note and discussed the case with the resident. I agree with the resident's findings and plan as documented. SUBJECTIVE: s/p lap chol. no BM, no passing gas yet. OBJECTIVE: Vital Signs Temperature 99.2 F 05/02/19 08:36 Pulse Rate 74 05/02/19 08:36 Respiratory Rate 18 05/02/19 08:36 Blood Pressure 153/76 05/02/19 08:36 O2 Sat by Pulse Oximetry (%) 100 05/01/19 21:00 GENERAL: The patient is awake, alert, and fully oriented, in no acute distress. HEAD: Normal with no signs of trauma. EYES: PERRL, extraocular movements intact, sclera anicteric, conjunctiva clear. ENT: Ears normal, oropharynx clear without exudates, moist mucous membranes. NECK: Trachea midline, full range of motion, supple. LUNGS: Breath sounds equal, clear to auscultation bilaterally, no wheezes, no crackles, no accessory muscle use. HEART: Regular rate and rhythm, S1, S2 without murmur, rub or gallop. ABDOMEN: Soft, RUQ pain ,hypoactive BS, positive for LUCIANA drainage , no guarding, no rebound, no hepatosplenomegaly, no masses. EXTREMITIES: 2+ pulses, warm, well-perfused, no edema. NEUROLOGICAL: Cranial nerves II through XII grossly intact. Normal speech, gait not observed. PSYCH: Normal mood, normal affect. SKIN: Warm, dry, normal turgor, no rashes or lesions noted CBCD WBC 10.5 K/mm3 (4.0-10.0) H 05/02/19 07:28 RBC 4.87 M/mm3 (3.60-5.2) 05/02/19 07:28 Hgb 14.4 GM/dL (10.7-15.3) 05/02/19 07:28 Hct 42.9 % (32.4-45.2) 05/02/19 07:28 MCV 88.2 fl (80-96) 05/02/19 07:28 MCHC 33.6 g/dl (32.0-36.0) 05/02/19 07:28 RDW 13.5 % (11.6-15.6) 05/02/19 07:28 Plt Count 178 K/MM3 (134-434) 05/02/19 07:28 MPV 9.6 fl (7.5-11.1) 05/02/19 07:28 CMP Sodium 138 mmol/L (136-145) 05/02/19 07:28 Potassium 3.6 mmol/L (3.5-5.1) 05/02/19 07:28 Chloride 103 mmol/L (98-107) 05/02/19 07:28 Carbon Dioxide 26 mmol/L (21-32) 05/02/19 07:28 Anion Gap 9 MMOL/L (8-16) 05/02/19 07:28 BUN 7.8 mg/dL (7-18) 05/02/19 07:28 Creatinine 0.8 mg/dL (0.55-1.3) 05/02/19 07:28 Random Glucose 103 mg/dL (74-106) 05/02/19 07:28 Calcium 8.7 mg/dL (8.5-10.1) 05/02/19 07:28 Total Bilirubin 1.3 mg/dL (0.2-1) H 05/01/19 06:00 AST 15 U/L (15-37) 05/01/19 06:00 ALT 18 U/L (13-61) 05/01/19 06:00 Alkaline Phosphatase 104 U/L (45-117) 05/01/19 06:00 Total Protein 7.9 g/dl (6.4-8.2) 05/01/19 06:00 Albumin 4.5 g/dl (3.4-5.0) 05/01/19 06:00 Current Medications Generic Name Dose Route Start Last Admin Trade Name Freq PRN Reason Stop Dose Admin Acetaminophen 650 mg 05/01/19 10:43 05/01/19 23:59 Tylenol - PO 650 mg Q4H PRN Administration PAIN LEVEL 6-10 Lactated Ringer's 1,000 mls @ 100 mls/hr 05/01/19 10:45 05/01/19 19:38 Lactated Ringers Solution IV 05/02/19 20:44 100 mls/hr ASDIR LIZZY Administration Piperacillin Sod/Tazobactam 50 mls @ 100 mls/hr 05/02/19 09:00 Sod 3.375 gm/ Dextrose IVPB Q6H-IV [facility] Protocol Levothyroxine Sodium 75 mcg 05/02/19 07:00 05/02/19 06:02 Synthroid - PO 75 mcg DAILY@0700 LIZZY Administration Morphine Sulfate 2 mg 05/01/19 12:34 05/02/19 04:13 Morphine Sulfate IVPUSH 2 mg Q4H PRN Administration PAIN LEVEL 6-10 Ondansetron HCl 4 mg 05/01/19 10:43 05/02/19 03:02 Zofran Injection IVPUSH 4 mg Q6H PRN Administration NAUSEA Pantoprazole Sodium 40 mg 05/01/19 10:00 05/02/19 09:09 Protonix - PO Not Given DAILY [facility] Home Medications Medication Instructions Recorded Levothyroxine [Synthroid -] 75 mcg PO DAILY 12/05/12 Metoclopramide HCl 5 mg PO TID PRN 05/01/19 Pantoprazole Sodium [Protonix] 40 mg PO DAILY 05/01/19 ASSESSMENT AND PLAN: patient is a 58 year old female with a PMHx of hypothyroidism presents to the hospital for acute, 04/28, sharp right upper quadrant abdominal pain that began last night. #POD#0 s/p lap chol. for acute Cholecystitis: zosyn 3.375 q6h continue , surgeon dr. Davis , IVF LR 100cc/hr, pain control morphine 2mg Q4 PRN and tylenol, zofran for nausea #Hypothyroidism: continue synthroid DVT Px: SCDs
[2019-05-02] MEDS ORDERED: ROCURONIUM BROMIDE 50 MG/5 ML SYRINGE ONE ×2 (10:58→13:25)
[2019-05-02] MEDS ORDERED: PROPOFOL 20 ML ONE ×3 (10:58→13:25)
[2019-05-02] MEDS ORDERED: BUPIVACAINE HCL/PF 0.5% (5 MG/ML) 30 ML VIAL IJ ONE ×4 (11:30→14:50)
[2019-05-02] MEDS ORDERED: BENZOIN TINCTURE SWABSTICK TP ONE (11:30)
[2019-05-02] MEDS ORDERED: ONDANSETRON 4 MG/2 ML VIAL IVPUSH PRN ×2 (11:57→19:20)
[2019-05-02] MEDS ORDERED: PROMETHAZINE HCL 25 MG/1 ML VIAL IVPUSH PRN (11:57)
[2019-05-02] MEDS ORDERED: LACTATED RINGERS SOLUTION 1,000 ML IV SCH ×2 (12:00→19:20)
[2019-05-02] MEDS ORDERED: DESFLURANE GAS 240 ML BOTTLE IH ONE (12:05)
[2019-05-02] MEDS ORDERED: EPHEDRINE SULFATE/0.9% NACL/PF 50 MG/10 ML SYRINGE NR ONE (12:06)
[2019-05-02] MEDS ORDERED: morphine SULFATE 4 MG/ML VIAL ONE (12:43)
[2019-05-02] MEDS ORDERED: morphine SULFATE 4 MG/ML VIAL IVPUSH ONE (12:50)
[2019-05-02] MEDS ORDERED: NEOSTIGMINE METHYLSULFATE 0.5 MG/ML - 10 ML MDV ONE (14:46)
[2019-05-02] MEDS ORDERED: oxyCODONE HCL 5 MG TABLET PO PRN (15:13)
[2019-05-02] MEDS ORDERED: ACETAMINOPHEN INJECTION 100 ML IVPB ONE (15:46)
--- NOTE | 2019-05-02 16:02 | SURG ---
Surgery Agile Java Developer Note [employer]ile Java Developer: Chandler Navarro PA-C Date of Service: 05/02/19 Diagnosis: acute cholecystitis Procedure: lap cholecystectomy I was present for the entirety of the operative procedure. For further detail, please refer to operative report. Visit type - Case Type Case Type: ED Admission - Emergency Emergency Visit: Yes ED Registration Date: 05/01/19 Care time: The patient presented to the Emergency Department on the above date and was hospitalized for further evaluation of their emergent condition. - New patient This patient is new to me today: Yes Date on this admission: 05/02/19 - Critical Care Critical Care patient: No
--- NOTE | 2019-05-02 16:04 | OP ---
Operative Note - Note: Operative Date: 05/02/19 Pre-Operative Diagnosis: acute cholecystitis Operation: laproscopic cholecystectomy Post-Operative Diagnosis: Same as Pre-op Surgeon: Federico Davis [employer] Manager: Chandler Navarro Anesthesiologist/PICKLING MACHINE OPERATOR: Princess Hutchinson MD Anesthesia: General Specimens Removed: gallbladder Operative Report Dictated: Yes
--- NOTE | 2019-05-02 17:46 | PN ---
Physical Exam: SUBJECTIVE: Patient seen and examined, no acute events overnight. S/p lap samuel , no BM no passing gas yet OBJECTIVE: Vital Signs Period Temp Pulse Resp BP Sys/Pavon Pulse Ox Last 24 Hr 97.4 F-99.5 F 65-77 12-20 150-172/76-84 97-100 GENERAL: The patient is awake, alert, and fully oriented, in no acute distress. HEAD: Normal with no signs of trauma. EYES: PERRL, extraocular movements intact, sclera anicteric, conjunctiva clear. ENT: Ears normal, oropharynx clear without exudates, moist mucous membranes. NECK: Trachea midline, full range of motion, supple. LUNGS: Breath sounds equal, clear to auscultation bilaterally, no wheezes, no crackles, no accessory muscle use. HEART: Regular rate and rhythm, S1, S2 without murmur, rub or gallop. ABDOMEN: Soft, RUQ pain ,hypoactive BS, positive for LUCIANA drainage , no guarding, no rebound, no hepatosplenomegaly, no masses. EXTREMITIES: 2+ pulses, warm, well-perfused, no edema. NEUROLOGICAL: Cranial nerves II through XII grossly intact. Normal speech, gait not observed. PSYCH: Normal mood, normal affect. SKIN: Warm, dry, normal turgor, no rashes or lesions noted Laboratory Results - last 24 hr 05/02/19 05/02/19 05/02/19 07:28 07:28 07:28 WBC 10.5 H RBC 4.87 Hgb 14.4 Hct 42.9 MCV 88.2 MCH 29.7 MCHC 33.6 RDW 13.5 Plt Count 178 MPV 9.6 PT with INR 14.50 H INR 1.23 H Sodium 138 Potassium 3.6 Chloride 103 Carbon Dioxide 26 Anion Gap 9 BUN 7.8 Creatinine 0.8 Est GFR (CKD-EPI)AfAm 95.52 Est GFR (CKD-EPI)NonAf 82.42 Random Glucose 103 Calcium 8.7 TSH 0.14 L Active Medications Generic Name Dose Route Start Last Admin Trade Name Freq PRN Reason Stop Dose Admin Acetaminophen 650 mg 05/01/19 10:43 05/01/19 23:59 Tylenol - PO 650 mg Q4H PRN Administration PAIN LEVEL 6-10 Fentanyl 50 mcg 05/02/19 11:57 Sublimaze Injection - IVPUSH [id number] PRN PAIN-PACU ORDER X 4 DOSES ONLY Lactated Ringer's 1,000 mls @ 100 mls/hr 05/01/19 10:45 05/01/19 19:38 Lactated Ringers Solution IV 05/02/19 20:44 100 mls/hr ASDIR LIZZY Administration Piperacillin Sod/Tazobactam 50 mls @ 100 mls/hr 05/02/19 09:00 Sod 3.375 gm/ Dextrose IVPB Q6H-IV [facility] Protocol Lactated Ringer's 1,000 mls @ 125 mls/hr 05/02/19 12:00 Lactated Ringers Solution IV ASDIR LIZZY Levothyroxine Sodium 75 mcg 05/02/19 07:00 05/02/19 06:02 Synthroid - PO 75 mcg DAILY@0700 LIZZY Administration Morphine Sulfate 2 mg 05/01/19 12:34 05/02/19 09:28 Morphine Sulfate IVPUSH 2 mg Q4H PRN Administration PAIN LEVEL 6-10 Ondansetron HCl 4 mg 05/01/19 10:43 05/02/19 03:02 Zofran Injection IVPUSH 4 mg Q6H PRN Administration NAUSEA Ondansetron HCl 4 mg 05/02/19 11:57 Zofran Injection IVPUSH Q6H PRN NAUSEA AND/OR VOMITING Oxycodone HCl 5 mg 05/02/19 15:13 Roxicodone - PO Q4H PRN PAIN LEVEL 1-5 Oxycodone HCl 10 mg 05/02/19 15:13 Roxicodone - PO Q4H PRN PAIN LEVEL 6-10 Pantoprazole Sodium 40 mg 05/01/19 10:00 05/02/19 09:09 Protonix - PO Not Given DAILY [facility] Promethazine HCl 12.5 mg 05/02/19 11:57 Phenergan Injection - IVPUSH Q6H PRN NAUSEA-FOR RESCUE AFTER 15 MIN ASSESSMENT/PLAN: 58 year old female with a past medical history of hypothyroidism presents to the hospital for acute, 10, sharp right upper quadrant abdominal pain s/p lap samuel. #Acute Cholecystitis: seen on CT with positive bernal sign. POD #1 -continue zosyn 3.375 q6h -Dr. Davis consulted -IVF LR 100cc/hr -pain control morphine 2mg Q4 PRN and tylenol -zofran for nausea #Hypothyroidism -continue synthroid #FEN -LR @ 100cc/hr -replete lytes as necessary -NPO for now pending surgery evaluation #Prophylaxis -SCDs #Disposition -admit med surg Visit type - Emergency Visit Emergency Visit: Yes ED Registration Date: 05/01/19 Care time: The patient presented to the Emergency Department on the above date and was hospitalized for further evaluation of their emergent condition. - New Patient This patient is new to me today: Yes Date on this admission: 05/03/19 - Critical Care Critical Care patient: No - Discharge Referral Referred to [facility] Med P.C.: No ATTENDING PHYSICIAN STATEMENT I saw and evaluated the patient. I reviewed the resident's note and discussed the case with the resident. I agree with the resident's findings and plan as documented. SUBJECTIVE: OBJECTIVE: ASSESSMENT AND PLAN:
[2019-05-02] MEDS ORDERED: MORPHINE SULFATE 2 MG/ML VIAL IVPUSH PRN (19:20)
[2019-05-03] MEDS: ACETAMINOPHEN 325 MG TABLET (FP) PO PRN ×2 (01:29→08:17)
[2019-05-03] MEDS: LEVOTHYROXINE NA 75 MCG TABLET (FP) PO SCH (05:59)
--- NOTE | 2019-05-03 07:50 | PN ---
Progress Note (short form) - Note Progress Note: GENERAL SURGERY POD #1 Alert. Supine in bed w/ daughter at bedside. Resting comfortably. C/o mild incisional tenderness. Adequate pain control with meds as ordered. Shes been oob and ambulating to bathroom --> voiding spontaneously. Denies n/v/f/c, CP, palpitations, SOB or OBANDO Last Vital Signs Temp Pulse Resp BP Pulse Ox 99.3 F 92 H 19 145/86 97 05/03/19 07:29 05/03/19 07:29 05/03/19 07:29 05/03/19 07:29 05/02/19 21:00 Gen: nad ABD: all surgical ports c/d/i. LUCIANA 40mL (serosang) LE: soft. supple. NT. SCDs bilat Problem List - Problems (1) S/P laparoscopic cholecystectomy Assessment/Plan: POD #1 OOB and ambulate Pain management prn Incentive spirometer Advance diet as tolerated LUCIANA dc'd on rounds Can dc home today if tolerated diet. On behalf of Dr. Davis, thank you for the opportunity to participate in your patient's care Code(s): Z90.49 - ACQUIRED ABSENCE OF OTHER SPECIFIED PARTS OF DIGESTIVE TRACT (2) Acute calculous cholecystitis Code(s): K80.00 - CALCULUS OF GALLBLADDER W ACUTE CHOLECYST W/O OBSTRUCTION
[2019-05-03 08:06] LABS: BASO % 0.1 % (0-2.0); HEMATOCRIT 40.2 % (32.4-45.2); HEMOGLOBIN 13.4 GM/dL (10.7-15.3); LYMPH % 9.5 % (8-40); MCH 29.6 pg (25.7-33.7); MCHC 33.4 g/dl (32.0-36.0); MEAN CELL VOLUME 88.7 fl (80-96); MEAN PLT VOLUME 9.5 fl (7.5-11.1); MONO % 9.4 % (3.8-10.2); PLATELET COUNT 169 K/MM3 (134-434); RBC 4.54 M/mm3 (3.60-5.2); RDW 13.7 % (11.6-15.6); WHITE BLOOD COUNT 12.7 K/mm3 (4.0-10.0)
[2019-05-03 08:26] LABS: ALBUMIN 2.9 g/dl (3.4-5.0); BILIRUBIN,TOTAL 1.7 mg/dL (0.2-1); BLOOD UREA NITROGEN 9.6 mg/dL (7-18); CALCIUM 8.4 mg/dL (8.5-10.1); CREATININE 0.8 mg/dL (0.55-1.3); POTASSIUM 3.5 mmol/L (3.5-5.1); TOT PROT 5.6 g/dl (6.4-8.2)
[2019-05-03] MEDS ORDERED: DEXTROSE 5%-WATER 100 ML IVPB ONE (10:18)
[2019-05-03] MEDS: CEFTRIAXONE 2 GM in DEXTROSE 5%-WATER 100 ML IVPB SCH (10:30)
[2019-05-03] MEDS: PANTOPRAZOLE 40 MG TABLET (FP) PO SCH (10:32)
[2019-05-03] MEDS: SODIUM CHLORIDE 1,000 ML IV SCH (10:32)
--- NOTE | 2019-05-03 11:19 | PN ---
Progress Note (short form) - Note Progress Note: Anesthesia postop note 58 y/o F s/p GA for laparoscopic cholecystectomy POD#1, vss, aaox3, no complaints. No anesthesia complications.
--- NOTE | 2019-05-03 12:41 | PN ---
Physical Exam: SUBJECTIVE: Patient seen and examined at the bedside, there were no acute events overnight. Patient reports she is ambulating and passing gas. States she has only a little bit of pain, instructed on how to use incentive spirometer today. OBJECTIVE: Vital Signs Period Temp Pulse Resp BP Sys/Pavon Pulse Ox Last 24 Hr 99.0 F-100.3 F 65-100 12-20 142-172/76-89 94-100 GENERAL: The patient is awake, alert, and fully oriented, in no acute distress. HEAD: Normal with no signs of trauma. EYES: PERRL, extraocular movements intact, sclera anicteric, conjunctiva clear. ENT: Ears normal, oropharynx clear without exudates, moist mucous membranes. NECK: Trachea midline, full range of motion, supple. LUNGS: Breath sounds equal, clear to auscultation bilaterally, no wheezes, no crackles, no accessory muscle use. HEART: Regular rate and rhythm, S1, S2 without murmur, rub or gallop. ABDOMEN: Soft, RUQ pain ,hypoactive BS, positive for LUCIANA drainage , no guarding, no rebound, no hepatosplenomegaly, no masses. EXTREMITIES: 2+ pulses, warm, well-perfused, no edema. NEUROLOGICAL: Cranial nerves II through XII grossly intact. Normal speech, gait not observed. PSYCH: Normal mood, normal affect. SKIN: Warm, dry, normal turgor, no rashes or lesions noted Laboratory Results - last 24 hr 05/03/19 05/03/19 07:30 07:30 WBC 12.7 H RBC 4.54 Hgb 13.4 Hct 40.2 MCV 88.7 MCH 29.6 MCHC 33.4 RDW 13.7 Plt Count 169 MPV 9.5 Absolute Neuts (auto) 10.3 H Neutrophils % 81.0 Lymphocytes % 9.5 D Monocytes % 9.4 Eosinophils % 0.0 D Basophils % 0.1 Nucleated RBC % 0 Sodium 139 Potassium 3.5 Chloride 105 Carbon Dioxide 27 Anion Gap 7 L BUN 9.6 Creatinine 0.8 Est GFR (CKD-EPI)AfAm 95.52 Est GFR (CKD-EPI)NonAf 82.42 Random Glucose 113 H Calcium 8.4 L Total Bilirubin 1.7 H AST 33 ALT 29 Alkaline Phosphatase 75 Total Protein 5.6 L Albumin 2.9 L Active Medications Generic Name Dose Route Start Last Admin Trade Name Freq PRN Reason Stop Dose Admin Acetaminophen 650 mg 05/02/19 19:20 05/03/19 08:17 Tylenol - PO 650 mg Q4H PRN Administration PAIN LEVEL 6-10 Ceftriaxone Sodium 2 gm/ 100 mls @ 100 mls/hr 05/03/19 10:00 05/03/19 10:30 Dextrose IVPB 100 mls/hr DAILY LIZZY Administration Protocol Sodium Chloride 1,000 mls @ 100 mls/hr 05/03/19 08:45 05/03/19 10:32 Normal Saline - IV 100 mls/hr ASDIR LIZZY Administration Levothyroxine Sodium 75 mcg 05/03/19 07:00 05/03/19 05:59 Synthroid - PO 75 mcg DAILY@0700 LIZZY Administration Morphine Sulfate 2 mg 05/02/19 19:20 Morphine Sulfate IVPUSH Q4H PRN PAIN LEVEL 6-10 Ondansetron HCl 4 mg 05/02/19 19:20 Zofran Injection IVPUSH Q6H PRN NAUSEA Oxycodone HCl 5 mg 05/02/19 15:13 Roxicodone - PO Q4H PRN PAIN LEVEL 1-5 Oxycodone HCl 10 mg 05/02/19 15:13 Roxicodone - PO Q4H PRN PAIN LEVEL 6-10 Pantoprazole Sodium 40 mg 05/03/19 10:00 05/03/19 10:32 Protonix - PO 40 mg DAILY LIZZY Administration ASSESSMENT/PLAN: 58 year old female with a past medical history of hypothyroidism presents to the hospital for acute, 04/28, sharp right upper quadrant abdominal pain s/p lap samuel. #Acute Cholecystitis: seen on CT with positive bernal sign. POD #1 -continue zosyn 3.375 q6h -Dr. Davis consulted, appreciate recommendations -IVF NS 100cc/hr -pain control morphine 2mg Q4 PRN and tylenol -zofran for nausea - incentive spirometer #Hypothyroidism -continue synthroid # UTI- patient with urine cultures growing Ecoli - 2g rocephin, will continue tomorrow and then consider switching to ceftin on discharge. #FEN -NS@ 100cc/hr -replete lytes as necessary -clear liquid diet, advance as tolerated #Prophylaxis -SCDs #Disposition -admit med surg Visit type - Emergency Visit Emergency Visit: Yes ED Registration Date: 05/01/19 Care time: The patient presented to the Emergency Department on the above date and was hospitalized for further evaluation of their emergent condition. - New Patient This patient is new to me today: No - Critical Care Critical Care patient: No - Discharge Referral Referred to [facility] No ATTENDING PHYSICIAN STATEMENT I saw and evaluated the patient. I reviewed the resident's note and discussed the case with the resident. I agree with the resident's findings and plan as documented. SUBJECTIVE: OBJECTIVE: ASSESSMENT AND PLAN:
[2019-05-03] MEDS: oxyCODONE HCL 5 MG TABLET PO PRN ×2 (13:27→19:56)
--- NOTE | 2019-05-03 21:57 | PN ---
Teaching Attending Note Name of Resident: Ana Arellano ATTENDING PHYSICIAN STATEMENT I saw and evaluated the patient. I reviewed the resident's note and discussed the case with the resident. I agree with the resident's findings and plan as documented. SUBJECTIVE: Patient is s/p lap chol. feeling better. OBJECTIVE: Vital Signs Temperature 99.4 F 05/03/19 13:43 Pulse Rate 87 05/03/19 20:13 Respiratory Rate 20 05/03/19 20:13 Blood Pressure 155/85 05/03/19 20:13 O2 Sat by Pulse Oximetry (%) 94 L 05/03/19 09:00 GENERAL: The patient is awake, alert, and fully oriented, in no acute distress. HEAD: Normal with no signs of trauma. EYES: PERRL, extraocular movements intact, sclera anicteric, conjunctiva clear. ENT: Ears normal, oropharynx clear without exudates, moist mucous membranes. NECK: Trachea midline, full range of motion, supple. LUNGS: Breath sounds equal, clear to auscultation bilaterally, no wheezes, no crackles, no accessory muscle use. HEART: Regular rate and rhythm, S1, S2 without murmur, rub or gallop. ABDOMEN: s/p lap.chol. hypoactive BS, positive for LUCIANA drainage , no guarding, no rebound, no hepatosplenomegaly, no masses. EXTREMITIES: 2+ pulses, warm, well-perfused, no edema. NEUROLOGICAL: Cranial nerves II through XII grossly intact. Normal speech, gait not observed. PSYCH: Normal mood, normal affect. SKIN: Warm, dry, normal turgor, no rashes or lesions noted CBCD WBC 12.7 K/mm3 (4.0-10.0) H 05/03/19 07:30 RBC 4.54 M/mm3 (3.60-5.2) 05/03/19 07:30 Hgb 13.4 GM/dL (10.7-15.3) 05/03/19 07:30 Hct 40.2 % (32.4-45.2) 05/03/19 07:30 MCV 88.7 fl (80-96) 05/03/19 07:30 MCHC 33.4 g/dl (32.0-36.0) 05/03/19 07:30 RDW 13.7 % (11.6-15.6) 05/03/19 07:30 Plt Count 169 K/MM3 (134-434) 05/03/19 07:30 MPV 9.5 fl (7.5-11.1) 05/03/19 07:30 CMP Sodium 139 mmol/L (136-145) 05/03/19 07:30 Potassium 3.5 mmol/L (3.5-5.1) 05/03/19 07:30 Chloride 105 mmol/L (98-107) 05/03/19 07:30 Carbon Dioxide 27 mmol/L (21-32) 05/03/19 07:30 Anion Gap 7 MMOL/L (8-16) L 05/03/19 07:30 BUN 9.6 mg/dL (7-18) 05/03/19 07:30 Creatinine 0.8 mg/dL (0.55-1.3) 05/03/19 07:30 Random Glucose 113 mg/dL (74-106) H 05/03/19 07:30 Calcium 8.4 mg/dL (8.5-10.1) L 05/03/19 07:30 Total Bilirubin 1.7 mg/dL (0.2-1) H 05/03/19 07:30 AST 33 U/L (15-37) 05/03/19 07:30 ALT 29 U/L (13-61) 05/03/19 07:30 Alkaline Phosphatase 75 U/L (45-117) 05/03/19 07:30 Total Protein 5.6 g/dl (6.4-8.2) L 05/03/19 07:30 Albumin 2.9 g/dl (3.4-5.0) L 05/03/19 07:30 Current Medications Generic Name Dose Route Start Last Admin Trade Name Freq PRN Reason Stop Dose Admin Acetaminophen 650 mg 05/02/19 19:20 05/03/19 08:17 Tylenol - PO 650 mg Q4H PRN Administration PAIN LEVEL 6-10 Ceftriaxone Sodium 2 gm/ 100 mls @ 100 mls/hr 05/03/19 10:00 05/03/19 10:30 Dextrose IVPB 100 mls/hr DAILY LIZZY Administration Protocol Sodium Chloride 1,000 mls @ 100 mls/hr 05/03/19 08:45 05/03/19 10:32 Normal Saline - IV 100 mls/hr ASDIR LIZZY Administration Levothyroxine Sodium 75 mcg 05/03/19 07:00 05/03/19 05:59 Synthroid - PO 75 mcg DAILY@0700 LIZZY Administration Morphine Sulfate 2 mg 05/02/19 19:20 Morphine Sulfate IVPUSH Q4H PRN PAIN LEVEL 6-10 Ondansetron HCl 4 mg 05/02/19 19:20 Zofran Injection IVPUSH Q6H PRN NAUSEA Oxycodone HCl 5 mg 05/02/19 15:13 Roxicodone - PO Q4H PRN PAIN LEVEL 1-5 Oxycodone HCl 10 mg 05/02/19 15:13 05/03/19 19:56 Roxicodone - PO 10 mg Q4H PRN Administration PAIN LEVEL 6-10 Pantoprazole Sodium 40 mg 05/03/19 10:00 05/03/19 10:32 Protonix - PO 40 mg DAILY LIZZY Administration Home Medications Medication Instructions Recorded Levothyroxine [Synthroid -] 75 mcg PO DAILY 12/05/12 Metoclopramide HCl 5 mg PO TID PRN 05/01/19 Pantoprazole Sodium [Protonix] 40 mg PO DAILY 05/01/19 Microbiology 05/01/19 08:04 Urine - Urine Clean Catch Urine Culture - Preliminary Escherichia Coli Group D Strep Or Entero Coccus ASSESSMENT AND PLAN: patient is a 58 year old female with a PMHx of hypothyroidism presents to the hospital for acute, 04/28, sharp right upper quadrant abdominal pain that began last night. #POD#1 s/p lap chol. for acute Cholecystitis: s/p zosyn 3.375 , surgeon dr. Davis , IVF LR 100cc/hr, pain control morphine 2mg Q4 PRN and tylenol, zofran for nausea # Acute UTI growing Escherichia Coli, Group D Strep Or Entero Coccus sensitive to Ceftin, if patient is stable and o to go home dc her on oral ceftin for 5 more days 500mg po bid . #Hypothyroidism: continue synthroid DVT Px: SCDs check with sx for discharging her in am discharge with oral ceftin after 2nd dose of Rocephin in am patient;s daughter is coming to pick her up by 10am
[2019-05-04] MEDS: ACETAMINOPHEN 325 MG TABLET (FP) PO PRN ×2 (03:02→11:21)
[2019-05-04] MEDS: LEVOTHYROXINE NA 75 MCG TABLET (FP) PO SCH (06:03)
[2019-05-04 07:54] LABS: BASO % 0.3 % (0-2.0); EOS % 0.3 % (0-4.5); HEMATOCRIT 35.6 % (32.4-45.2); LYMPH % 13.6 % (8-40); MCHC 33.6 g/dl (32.0-36.0); MONO % 7.7 % (3.8-10.2); NEUT % 78.1 % (42.8-82.8); PLATELET COUNT 166 K/MM3 (134-434); RDW 13.5 % (11.6-15.6); WHITE BLOOD COUNT 10.3 K/mm3 (4.0-10.0)
[2019-05-04 08:20] LABS: ALBUMIN 2.6 g/dl (3.4-5.0); BILIRUBIN,TOTAL 1.1 mg/dL (0.2-1); BLOOD UREA NITROGEN 10.3 mg/dL (7-18); CREATININE 0.6 mg/dL (0.55-1.3); MAGNESIUM 2.1 mg/dL (1.8-2.4); POTASSIUM 3.1 mmol/L (3.5-5.1); TOT PROT 5.2 g/dl (6.4-8.2)
[2019-05-04] MEDS ORDERED: DEXTROSE 5%-WATER 100 ML IVPB ONE (09:00)
[2019-05-04] MEDS: CEFTRIAXONE 2 GM in DEXTROSE 5%-WATER 100 ML IVPB SCH (09:11)
[2019-05-04] MEDS: PANTOPRAZOLE 40 MG TABLET (FP) PO SCH (09:11)
[2019-05-04] MEDS: KCL 10 MEQ IVPB 10 MEQ/100 ML INFUS.BAG IVPB SCH ×2 (10:26→11:56)
[2019-05-04] MEDS: SODIUM CHLORIDE 1,000 ML IV SCH (11:24)
[2019-05-04 11:36] VITALS: BP 118/54; PULSE 79; TEMP 98.7
[2019-05-04] MEDS ORDERED: POTASSIUM CHLORIDE TABS 20 MEQ TABLET.ER (FP) PO ONE (12:15)
--- NOTE | 2019-05-04 13:47 | PN ---
Teaching Attending Note Name of Resident: Ana Arellano ATTENDING PHYSICIAN STATEMENT I saw and evaluated the patient. I reviewed the resident's note and discussed the case with the resident. I agree with the resident's findings and plan as documented. SUBJECTIVE: no fever or chills. No ROSAS . minimal abd pain, passed gas. no BM . tolerated food . reports dysuria before admission OBJECTIVE: NAD Cv : RRR Lungs: CTAb Abd: soft, ND, TTP in all quadrants, no rebound or guarding. bandages on . LE : no edema or erythema ASSESSMENT AND PLAN: 58 y/o lady with h/o hypothyroidism, who presented with abd pain and was found to have acute cholecystitis 1- acute cholecystitis s/p CCY. 2- UTi 3- h/o hpothyroidism. plan : - cont Abx . low colony count for E faecalis, but will treat E coli - surgical f/u - advance diet ibuprofen for pain dc home
--- NOTE | 2019-05-04 13:48 | DS ---
Physical Exam: SUBJECTIVE: Patient seen and examined OBJECTIVE: Vital Signs Period Temp Pulse Resp BP Sys/Pavon Pulse Ox Last 24 Hr 98.3 F-98.9 F 79-87 19-20 117-155/54-85 93-96 PHYSICAL EXAM GENERAL: The patient is awake, alert, and fully oriented, in no acute distress. HEAD: Normal with no signs of trauma. EYES: PERRL, extraocular movements intact, sclera anicteric, conjunctiva clear. ENT: Ears normal, nares patent, oropharynx clear without exudates, moist mucous membranes. NECK: Trachea midline, full range of motion, supple. LUNGS: Breath sounds equal, clear to auscultation bilaterally, no wheezes, no crackles, no accessory muscle use. HEART: Regular rate and rhythm, S1, S2 without murmur, rub or gallop. ABDOMEN: Soft, nontender, nondistended, normoactive bowel sounds, no guarding, no rebound, no hepatosplenomegaly, no masses. EXTREMITIES: 2+ pulses, warm, well-perfused, no edema. NEUROLOGICAL: Cranial nerves II through XII grossly intact. Normal speech, gait not observed. PSYCH: Normal mood, normal affect. SKIN: Warm, dry, normal turgor, no rashes or lesions noted. LABS Laboratory Results - last 24 hr 05/04/19 05/04/19 07:05 07:05 WBC 10.3 H RBC 4.00 Hgb 12.0 Hct 35.6 MCV 89.0 MCH 30.0 MCHC 33.6 RDW 13.5 Plt Count 166 MPV 9.0 Absolute Neuts (auto) 8.0 Neutrophils % 78.1 Lymphocytes % 13.6 D Monocytes % 7.7 Eosinophils % 0.3 D Basophils % 0.3 Nucleated RBC % 0 Sodium 141 Potassium 3.1 L Chloride 105 Carbon Dioxide 25 Anion Gap 10 BUN 10.3 Creatinine 0.6 Est GFR (CKD-EPI)AfAm 118.09 Est GFR (CKD-EPI)NonAf 101.89 Random Glucose 70 L Calcium 8.0 L Phosphorus 2.0 L Magnesium 2.1 Total Bilirubin 1.1 H AST 20 ALT 23 Alkaline Phosphatase 77 Total Protein 5.2 L Albumin 2.6 L HOSPITAL COURSE: Date of Admission:05/01/19 Date of Discharge: 05/04/19 Minutes to complete discharge: 40 Discharge Summary Problems reviewed: Yes Reason For Visit: ACUTE CALCULOUS CHOLECYSTITIS Condition: Improved - Instructions Diet, Activity, Other Instructions: You were in the hospital because you had an inflamed gallbladder which was causing you pain. You had surgery with Dr. Duque to remove your gallbladder and relieve your pain. While in the hospital we discovered you had a UTI and started you on antibiotics, please continue to take these antibiotics for 5 more days. Please continue all home medications as prescribed with the following changes: ADD Ceftin 500mg TWICE per day for 5 days ADD Ibuprofen 400 q8h as needed for pain Please follow up with the following doctors within 1 week of discharge from the hospital: - Dr. Worley, your primary care provider - Dr. Duque, your surgeon If you have abdominal pain, nausea, vomiting, blood or burning on urination please return to the ED immediately. PLEASE SEE DR. DUQUE'S DISCHARGE INSTRUCTIONS BELOW: Dr. Duque Discharge Instructions Dear LATASHA CERVANTES, Post Operative Instructions Physical activity Resume your normal everyday activity as tolerated no heavy lifting or exercise until seen by your surgeon. You may walk unlimited amounts of and climb stairs. You may resume driving the car when you feel safe and comfortable behind the wheel. Wound care If you have a bandage, leave it on, and keep dry for 48 - 72 hours. After that time discard the outer bandage. If there are tapes on the skin under the outer bandage, leave them in place. They will peel off in the next 7 to 10 days. Do Not peel them off. You may shower 2 days after surgery. If there are tapes present on the skin, they can get wet. Diet There are no dietary restrictions. Eat healthy, high-fiber foods. Drink 6 to 8 glasses of liquid each day. This will assist in keeping your bowels are regular. Pain management You may take Tylenol or acetaminophen or Ibuprofen (for example, Motrin, Advil etc.) Any pain prescription medication ordered should be taken as prescribed for moderate to severe pain. Call Dr. Duque for any of the following: Severe pain not relieved by medication Fever of 101 or higher Excessive bleeding or drainage on dressing Inability to urinate Call the office at [phone] for a post operative appointment in 7 - 10 days. Referrals: Federico Duque MD [Staff Physician] - 1 Week Katia Worley MD [Primary Care Provider] - 1 Week Disposition: HOME - Home Medications Comprehensive Discharge Medication List: Ambulatory Orders Levothyroxine [Synthroid -] 75 mcg PO DAILY 12/05/12 Metoclopramide HCl 5 mg PO TID PRN 05/01/19 Pantoprazole Sodium [Protonix] 40 mg PO DAILY 05/01/19 Cefuroxime Axetil [Ceftin -] 500 mg PO BID #10 tablet 05/04/19 Ibuprofen 400 mg PO TID PRN #20 tablet 05/04/19 This patient is new to me today: No Emergency Visit: Yes ED Registration Date: 05/01/19 Care time: The patient presented to the Emergency Department on the above date and was hospitalized for further evaluation of their emergent condition. Critical Care patient: No - Discharge Referral Referred to [facility] No ATTENDING PHYSICIAN STATEMENT I saw and evaluated the patient. I reviewed the resident's note and discussed the case with the resident. I agree with the resident's findings and plan as documented. SUBJECTIVE: OBJECTIVE: ASSESSMENT AND PLAN:
--- NOTE | 2019-05-04 17:08 | PATH ---
Surgical Pathology Report Patient Name: LATASHA CERVANTES [facility]. Rec. #: [id number] /Age/Gender: 1960 (Age: 58) / F Account: [id number] Location: [address] [place] [address]/[facility] Taken: 05/02/2019 Received: 05/03/2019 Reported: 05/04/2019 Physicians: José Miguel Rios MD Specimen(s) Received GALLBLADDER Clinical History Acute calculous cholecystitis Final Diagnosis GALLBLADDER, LAPAROSCOPIC CHOLECYSTECTOMY: ACUTE AND CHRONIC CHOLECYSTITIS WITH CHOLELITHIASIS. Electronically Signed Katia Crenshaw M.D. Gross Description Received in formalin, labeled "gallbladder," is an 8 x 4 x 1 cm. gallbladder with a 0.5 cm. in length portion of cystic duct attached. The outer surface is pink-hoskins, focally hemorrhagic and varies from smooth to shaggy. There is a focal defect at the fundus measuring 2 x 1 cm. The lumen contains multiple, black fragmented choleliths ranging in size from 0.3-0.5 cm. The mucosa is hemorrhagic and focally eroded. The wall of the gallbladder measures 0.7 cm. in thickness. Burglary Investigator sections are submitted in one cassette. HOANG/05/03/2019 madhavi/05/03/2019
--- NOTE | 2019-05-09 15:55 | OP ---
DATE OF OPERATION: 05/02/2019 PREOPERATIVE DIAGNOSIS: Acute cholecystitis and cholelithiasis. POSTOPERATIVE DIAGNOSIS: Acute cholecystitis and cholelithiasis. PROCEDURE: Laparoscopic cholecystectomy. SURGEON: Federico Davis MD HR ANALYST: Chandler Navarro PA-C ANESTHESIA: General. OPERATIVE FINDINGS: There was acute cholecystitis and cholelithiasis and a nodular liver with gross hepatomegaly. The rest of the findings were unremarkable. PROCEDURE: The patient was placed on the operating table in the supine position and after the induction of general anesthesia the patient's abdomen was prepped with ChloraPrep and draped in sterile fashion. A timeout was taken and pneumoperitoneum established above the umbilicus using a Veress needle. Once 15 mmHg of pressure were obtained, a 5-mm port was placed at the umbilicus and additional lateral 5-mm ports and a subxiphoid 12-mm port. Laparoscopy was carried out and the previously noted findings were observed. Dissection was begun at the neck of the gallbladder where the peritoneum was opened medially and laterally using blunt dissection and electrocautery. The cystic duct was identified coursing from the neck of the gallbladder towards the common bile duct and it was dissected using blunt dissection proximally and distally for length. Similarly, the artery was identified and dissected proximally and distally for length. A critical view of safety was taken and then the duct and the artery were clipped twice proximally and twice distally with large hemoclips. The duct and artery were then serially divided using Endoshears. Hemostasis was checked for and noted to be good and then the gallbladder was removed from the liver bed in a retrograde fashion using electrocautery. Prior to removal from the edge of the liver, hemostasis in the liver bed was again checked for and noted to be good and then the gallbladder removed from the edge of the liver, placed in an EndoCatch, and brought out through the subxiphoid port. Pneumoperitoneum was reestablished. Copious irrigation was carried out with saline. Hemostasis was verified again. A 10-mm Sampson-I[place] drain was placed in the right hepatorenal fossa and brought out through 1 of the 5-mm ports and secured to the skin with 2-0 silk suture. All port sites were removed under laparoscopic vision without evidence of bleeding from the port sites. The port sites were infiltrated with 0.5% Marcaine and the skin edges reapproximated with 4-0 Biosyn in a subcuticular continuous fashion. Steri-Strips and Band-Aid dressings were placed. The drain was connected to bulb suction and then the patient aroused from general anesthesia and transferred to the postanesthesia care unit in stable condition, awake and alert. ESTIMATED BLOOD LOSS: 20 mL. REPLACEMENT: Crystalloid. DRAINS: One 10-mm Sampson-Ireland in the right gallbladder fossa. SPECIMEN: Gallbladder and contents to Pathology. I, Federico Davis, was physically present in the operating room from the time the patient was placed on the operating table until she was transferred to the postanesthesia care unit in [place]. MD BIJAL Grimaldo/[id number]
== END 2019-05-04 15:28 | disposition home or self-care (01) | DRG 418 ==
LOC: JER 03:37 → JERBED 10:06 → J6S 12:16
PROVIDERS: ADMIT Internal Medicine; ATTEND Internal Medicine
PROC: 0FT44ZZ Resection of Gallbladder, Percutaneous Endoscopic Approach (ICD-10-PCS; principal; 2019-05-02 13:53)
DX: K80.00 Calculus of gallbladder with acute cholecystitis without obstruction (principal); N39.0 Urinary tract infection, site not specified; E03.9 Hypothyroidism, unspecified; B96.20 Unspecified Escherichia coli [E. coli] as the cause of diseases classified elsewhere
CPT/HCPCS: 36415; 74177-TC; 76705-TC; 80048; 80053; 81003; 83690; 83735; 84100; 84443; 84703; 85025; 85027; 85610; 85730; 86850; 86900; 86901; 87086; 87186; 88304-TC; 94010; 94760; 99283-25; J0131; J7030

== ENCOUNTER 2019-05-19 13:18 | Inpatient (IN) | payer OTHER ==
[2019-05-19] MEDS ORDERED: LACTATED RINGERS SOLUTION 1000 ML INFUS.BAG IV ONE (14:58)
[2019-05-19] MEDS ORDERED: ACETAMINOPHEN 1000 MG/100 ML VIAL (NON FORMULARY) IVPB ONE (15:23)
--- NOTE | 2019-05-19 15:29 | PDOC ---
History of Present Illness - General Chief Complaint: Pain, Acute Stated Complaint: POST-OP COMPLICATION Time Seen by Provider: 05/19/19 14:39 History Source: Patient Exam Limitations: Clinical Condition - History of Present Illness Initial Comments: 05/19/19 15:24 Patient with past medical history of hypothyroidism and GERD status post lap samuel 2 weeks ago for cholecystitis with gallstones present with complaint of persistent nausea and vomiting and epigastric pain post surgery and now with bilateral mild jaundice for a week. Patient denies fever, chills, diarrhea constipation. Patient was seen by surgeon a week ago for symptoms and advised to follow-up with PCP for possible antibiotics management or pain meds. Patient reported vomiting every time she eats anything orally or able to tolerate fluid diet. Patient has not taken anything for symptoms. Patient was seen by PCP who advised her to come to ED for evaluation and management Is this a multiple visit Asthma Patient?: No Past History - Past Medical History Allergies/Adverse Reactions: Allergies Allergy/AdvReac Type Severity Reaction Status Date / Time No Known Allergies Allergy Verified 05/01/19 04:41 Home Medications: Ambulatory Orders Levothyroxine [Synthroid -] 75 mcg PO DAILY 12/05/12 Metoclopramide HCl 5 mg PO TID PRN 05/01/19 Pantoprazole Sodium [Protonix] 40 mg PO DAILY 05/01/19 Cefuroxime Axetil [Ceftin -] 500 mg PO BID #10 tablet 05/04/19 Ibuprofen 400 mg PO TID PRN #20 tablet 05/04/19 Anemia: No Asthma: No Cancer: No Cardiac Disorders: No COPD: No CHF: No GI Disorders: Yes (GERD) HTN: No Thyroid Disease: Yes - Surgical History Cholecystectomy: Yes (apr 18, 2019) Neurologic Surgery: No - Immunization History Td Vaccination: Yes Immunization Up to Date: Yes - Psycho Social/Smoking Cessation Hx Smoking Status: No Smoking History: Never smoked Years of Tobacco Use: 0 Have you smoked in the past 12 months: No Number of Cigarettes Smoked Daily: 0 Cigars Per Day: 0 Information on smoking cessation initiated: No Hx Alcohol Use: No Drug/Substance Use Hx: No Substance Use Type: None Review of Systems - Review of Systems Able to Perform ROS?: Yes Is the patient limited Tajik proficient: No Constitutional: No: Chills, Fever, Malaise HEENTM: No: Symptoms Reported, See HPI, Eye Pain, Blurred Vision, Tearing, Recent change in vision, Double Vision, Cataracts, Ear Pain, Ocular Prothesis, Ear Discharge, Nose Pain, Nose Congestion, Tinnitus, Nose Bleeding, Hearing Loss , Throat Pain, Throat Swelling, Mouth Pain, Dental Problems, Difficulty Swallowing, Mouth Swelling, Other Respiratory: No: Symptoms reported, See HPI, Cough, Orthopnea, Shortness of Breath, SOB with Exertion, SOB at Rest, Stridor, Wheezing, Productive cough, Hemoptysis, Other Cardiac (ROS): No: Symptoms Reported, See HPI, Chest Pain, Edema, Irregular Heart Rate, Lightheadedness, Palpitations, Syncope, Chest Tightness, Other ABD/GI: Yes: Symptoms Reported, See HPI, Nausea, Vomiting, Abdominal cramping ( epigastric pain). No: Abdominal Distended, Abd. Pain w/ defecation, Blood Streaked Bowels, Constipated, Diarrhea, Difficulty Swallowing, Poor Appetite, Rectal Bleeding, Indigestion : No: Symptoms Reported, Dysuria, Discharge, Frequency, Flank Pain, Pain, Urgency Musculoskeletal: No: Symptoms Reported, Back Pain Integumentary: No: Symptoms Reported All Other Systems: Reviewed and Negative *Physical Exam - Vital Signs Last Vital Signs Temp Pulse Resp BP Pulse Ox 98.3 F 85 16 117/82 99 05/19/19 13:33 05/19/19 13:33 05/19/19 13:33 05/19/19 13:33 05/19/19 13:33 - Physical Exam Comments: 05/19/19 15:28 GENERAL: Well developed, well nourished. Awake and alert. No acute distress. HEENT: Mild bilateral sclera jaundice. Normocephalic, atraumatic. PERRLA, EOMI. . Moist mucous membranes. Oropharynx is clear. NECK: Supple. Full ROM. CARDIOVASCULAR: Regular rate and rhythm. No murmurs, rubs, or gallops. Distal pulses are 2+ and symmetric. PULMONARY: No evidence of respiratory distress. Lungs clear to auscultation bilaterally. No wheezing, rales or rhonchi. ABDOMINAL: Soft. Moderate epigastric tenderness without guarding or rebound. Non- distended. No rebound or guarding. No organomegaly. Normoactive bowel sounds. MUSCULOSKELETAL Normal range of motion at all joints. SKIN: Warm and dry. Normal capillary refill. No rashes. No skin jaundice. NEUROLOGICAL: Alert, awake, appropriate. Gait is normal without ataxia. PSYCHIATRIC: Cooperative. Good eye contact. Appropriate mood General Appearance: Yes: Nourished, Appropriately Dressed, Mild Distress ED Treatment Course - LABORATORY CBC & Chemistry Diagram: 05/19/19 15:30 05/19/19 15:22 - RADIOLOGY Radiology Studies Ordered: Category Date Time Status ABDOMEN & PELVIS CT WITH CONTR [CT] Stat CT Scan 05/19/19 14:54 Ordered ABDOMEN US -LIMITED [US] Stat Ultrasound 05/19/19 15:20 Ordered Medical Decision Making - Medical Decision Making 05/19/19 15:26 Patient with past medical history of hypothyroidism and GERD status post lap samuel 2 weeks ago for cholecystitis with gallstones present with complaint of persistent nausea and vomiting and epigastric pain post surgery and now with bilateral mild jaundice for a week. Patient denies fever, chills, diarrhea constipation. Patient was seen by surgeon a week ago for symptoms and advised to follow-up with PCP for possible antibiotics management or pain meds. Patient reported vomiting every time she eats anything orally or able to tolerate fluid diet. Patient has not taken anything for symptoms. Patient was seen by PCP who advised her to come to ED for evaluation and management Exam significant for moderate tenderness to epigastric region without guarding or rebound. Mild bilateral jaundice. Negative asterixis. Symptoms likely retained cholelithiasis versus pancreatitis versus worsening gastritis post surgery. CBC, CMP and lipase lab ordered. UA urine culture lab ordered. Abdominal ultrasound ordered to evaluate for gallstone. Abdominal pelvic CT with IV contrast ordered to rule out other abdominal pathology. IV hydration with lactated Ringer's 1 L ordered and Tylenol 1 g IV ordered for pain. Treat based on lab and imaging results 05/19/19 16:14 Patient signed out to oncoming [employer] Yassine for f/u care Discharge - Discharge Information Problems reviewed: Yes Clinical Impression/Diagnosis: Abdominal pain Qualifiers: Abdominal location: epigastric Qualified Code(s): R10.13 - Epigastric pain Condition: Stable - Follow up/Referral Referrals: Katia Worley MD [Primary Care Provider] - - Patient Discharge Instructions - Post Discharge Activity
[2019-05-19 15:43] LABS: BASO % 0.7 % (0-2.0); EOS % 0.5 % (0-4.5); HEMATOCRIT 45.1 % (32.4-45.2); HEMOGLOBIN 15.6 GM/dL (10.7-15.3); LYMPH % 17.2 % (8-40); MCH 30.5 pg (25.7-33.7); MCHC 34.6 g/dl (32.0-36.0); MEAN CELL VOLUME 88.4 fl (80-96); MEAN PLT VOLUME 9.4 fl (7.5-11.1); MONO % 7.7 % (3.8-10.2); NEUT % 73.9 % (42.8-82.8); PLATELET COUNT 311 K/MM3 (134-434); RDW 14.5 % (11.6-15.6); WHITE BLOOD COUNT 8.7 K/mm3 (4.0-10.0)
[2019-05-19 15:45] LABS: EPI CELLS 7.3 /HPF (0-5/HPF); HYALINE CASTS 83 /lpf (0-8); PH,URINE 5.5 (5.0-8.0); URINE APPEARANCE TURBID; URINE BACTERIA 5.5 /hpf (NEGATIVE); URINE BILIRUBIN 2+ (NEGATIVE); URINE COLOR DK YELLOW; URINE GLUCOSE (UA) NEGATIVE (NEGATIVE); URINE KETONE 2+ (NEGATIVE); URINE LEUK ESTERASE 1+ (NEGATIVE); URINE NITRITE POSITIVE (NEGATIVE); URINE PROTEIN 1+ (NEGATIVE); URINE WBC 9 /hpf (0-5)
[2019-05-19 16:12] LABS: ALBUMIN 4.2 g/dl (3.4-5.0); BILIRUBIN,TOTAL 4.5 mg/dL (0.2-1); BLOOD UREA NITROGEN 14.8 mg/dL (7-18); POTASSIUM 4.1 mmol/L (3.5-5.1); TOT PROT 7.8 g/dl (6.4-8.2)
[2019-05-19 16:39] LABS: URINE RBC 4.2 /hpf (0-4)
[2019-05-19] MEDS ORDERED: SODIUM CHLORIDE 1,000 ML IV STA (16:53)
--- NOTE | 2019-05-19 17:00 | PDOC ---
*Physical Exam - Vital Signs Last Vital Signs Temp Pulse Resp BP Pulse Ox 98.3 F 85 16 117/82 99 05/19/19 13:33 05/19/19 13:33 05/19/19 13:33 05/19/19 13:33 05/19/19 13:33 - Physical Exam General Appearance: Yes: Appropriately Dressed. No: Apparent Distress Gastrointestinal/Abdominal: positive: Normal Bowel Sounds, Tender (epigastrum), Soft ED Treatment Course - LABORATORY CBC & Chemistry Diagram: 05/20/19 07:32 05/20/19 07:32 - ADDITIONAL ORDERS Additional order review: Laboratory Results 05/19/19 05/19/19 05/19/19 15:30 15:30 15:30 WBC 8.7 RBC 5.10 Hgb 15.6 H Hct 45.1 D MCV 88.4 MCH 30.5 MCHC 34.6 RDW 14.5 Plt Count 311 D MPV 9.4 Absolute Neuts (auto) 6.4 Neutrophils % 73.9 Lymphocytes % 17.2 D Monocytes % 7.7 Eosinophils % 0.5 Basophils % 0.7 Nucleated RBC % 0 Sodium Potassium Chloride Carbon Dioxide Anion Gap BUN Creatinine Est GFR (CKD-EPI)AfAm Est GFR (CKD-EPI)NonAf Random Glucose Calcium Total Bilirubin AST ALT Alkaline Phosphatase Total Protein Albumin Lipase Urine Color Dk yellow Urine Appearance Turbid Urine pH 5.5 Ur Specific [place] 1.026 Urine Protein 1+ H Urine Glucose (UA) Negative Urine Ketones 2+ H Urine Blood 2+ H Urine Nitrite Positive H Urine Bilirubin 2+ H Urine Urobilinogen 1.0 Ur Leukocyte Esterase 1+ H Urine WBC (Auto) 9 Urine RBC (Auto) 4.2 Urine Casts (Auto) 83 U Pathogenic Cast Auto None seen U Epithel Cells (Auto) 7.3 U Sm Round Cell (Auto) None seen Urine Bacteria (Auto) 5.5 Blood Type A POSITIVE Antibody Screen Negative 05/19/19 15:22 WBC RBC Hgb Hct MCV MCH MCHC RDW Plt Count MPV Absolute Neuts (auto) Neutrophils % Lymphocytes % Monocytes % Eosinophils % Basophils % Nucleated RBC % Sodium 141 Potassium 4.1 Chloride 101 Carbon Dioxide 30 Anion Gap 10 BUN 14.8 Creatinine 1.0 Est GFR (CKD-EPI)AfAm 72.93 Est GFR (CKD-EPI)NonAf 62.93 Random Glucose 127 H Calcium 10.0 Total Bilirubin 4.5 H D AST 469 H ALT 916 H Alkaline Phosphatase 563 H Total Protein 7.8 Albumin 4.2 Lipase 611 H Urine Color Urine Appearance Urine pH Ur Specific [place] Urine Protein Urine Glucose (UA) Urine Ketones Urine Blood Urine Nitrite Urine Bilirubin Urine Urobilinogen Ur Leukocyte Esterase Urine WBC (Auto) Urine RBC (Auto) Urine Casts (Auto) U Pathogenic Cast Auto U Epithel Cells (Auto) U Sm Round Cell (Auto) Urine Bacteria (Auto) Blood Type Antibody Screen 05/19/19 15:30 RBC 5.10 MCV 88.4 MCHC 34.6 RDW 14.5 MPV 9.4 Neutrophils % 73.9 Lymphocytes % 17.2 D Monocytes % 7.7 Eosinophils % 0.5 Basophils % 0.7 - Medications Given in the ED: ED Medications Discontinued Medications Generic Name Dose Route Start Last Admin Trade Name Freq PRN Reason Stop Dose Admin Lactated Ringer's 1,000 ml 05/19/19 14:58 05/19/19 15:26 Lactated Ringers Solution IV 05/19/19 14:59 1,000 ml ONCE ONE Administration ED Progress Note - Progress Note Progress Note: 05/19/19 16:58 Received signout from DEANGELO Kirby. Briefly this is a 58-year-old woman with history of hypothyroidism and GERD who is status post laparoscopic cholecystectomy on 05/01 presented to the ER with persistent nausea vomiting and epigastric pain status post surgery. Patient now with jaundice for approximately 1 week. Patient reports difficulty tolerating p.o.'s. CBC is unremarkable Urinalysis notable for 1+ protein, 2+ ketones, 2+ blood, positive nitrites, 2+ bili, 1+ leuk esterase 9 WBCs on high-power field. Chemistries are pending Ultrasound is pending CT of the abdomen and pelvis is pending Medical Decision Making - Medical Decision Making 05/19/19 16:59 Ultrasound is read by Dr. Krueger: Status post recent cholecystectomy. No definite biliary tract dilatation is noted No gross intraductal calculus is identified within the limitations of transabdominal sonography. MRI/MRCP evaluation may be considered Laboratory Tests 05/19/19 15:22 Sodium 141 Potassium 4.1 Chloride 101 Carbon Dioxide 30 BUN 14.8 Creatinine 1.0 Est GFR (CKD-EPI)NonAf 62.93 Random Glucose 127 H Total Bilirubin 4.5 H D AST 469 H ALT 916 H Alkaline Phosphatase 563 H Total Protein 7.8 Albumin 4.2 Lipase 611 H While patient's lipase is only 2 times normal I will continue to treat with fluids for potential early pancreatitis. Zofran 4 mg IV now Patient will need to be admitted for continued evaluation and GI consultation. CT of the abdomen is pending 05/19/19 18:44 Case has been discussed with the hospitalist service who accepts for inpatient admission. Discharge - Discharge Information Problems reviewed: Yes Clinical Impression/Diagnosis: Transaminitis Abdominal pain Qualifiers: Abdominal location: epigastric Qualified Code(s): R10.13 - Epigastric pain Condition: Fair - Admission Yes - Follow up/Referral - Patient Discharge Instructions - Post Discharge Activity
[2019-05-19] MEDS ORDERED: ONDANSETRON 4 MG/2 ML VIAL IVPUSH ONE (18:10)
--- NOTE | 2019-05-19 18:11 | HP ---
CHIEF COMPLAINT: lower abdominal pain, nausea and vomiting General Surgeon: Dr. Davis HISTORY OF PRESENT ILLNESS: Mrs. Begum is a mainly Burmese speaking 58 year old female with history of hypothyroidism and laparscopic cholecystectomy on 05/01/[address] Davis for acute cholecystitis. She presents with ? right lower abdominal pain associated with nausea, and vomiting. She denied fever, chills, chest pain or shortness of breath. Upon evaluation she was found to have a normal WBC, elevated LFT's (ast 469, alt 916,total bilirubinin 4.5,alk phos 563) and lipase of 611. CT of abdomen revealed no biliary tract dilatation, mild appendiceal wall thickening (not seen on prior CT scan) and possible early acute appendicitis. She is currently afebrile and hemodynamically stable. Recent Travel: denies PAST MEDICAL HISTORY: hypothyroidism PAST SURGICAL HISTORY: laparscopic cholecystectomy Social History: Smoking:denies Alcohol:denies Drugs: denies Allergies No Known Allergies Allergy (Verified 05/01/19 04:41) HOME MEDICATIONS: Home Medications Medication Instructions Recorded Levothyroxine [Synthroid -] 75 mcg PO DAILY 12/05/12 Metoclopramide HCl 5 mg PO TID PRN 05/01/19 Pantoprazole Sodium [Protonix] 40 mg PO DAILY 05/01/19 Cefuroxime Axetil [Ceftin -] 500 mg PO BID #10 tablet 05/04/19 Ibuprofen 400 mg PO TID PRN #20 tablet 05/04/19 REVIEW OF SYSTEMS CONSTITUTIONAL: Absent: fever, chills, diaphoresis, generalized weakness, malaise, loss of appetite, weight change HEENT: Absent: rhinorrhea, nasal congestion, throat pain, throat swelling, difficulty swallowing, mouth swelling, ear pain, eye pain, visual changes CARDIOVASCULAR: Absent: chest pain, syncope, palpitations, irregular heart rate, lightheadedness , peripheral edema RESPIRATORY: Absent: cough, shortness of breath, dyspnea with exertion, orthopnea, wheezing, stridor, hemoptysis GASTROINTESTINAL: Absent: lower abdominal pain, abdominal distension, nausea, vomiting, diarrhea, constipation, melena, hematochezia GENITOURINARY: Absent: dysuria, frequency, urgency, hesitancy, hematuria, flank pain, genital pain MUSCULOSKELETAL: Absent: myalgia, arthralgia, joint swelling, back pain, neck pain SKIN: Absent: rash, itching, pallor HEMATOLOGIC/IMMUNOLOGIC: Absent: easy bleeding, easy bruising, lymphadenopathy, frequent infections ENDOCRINE: Absent: unexplained weight gain, unexplained weight loss, heat intolerance, cold intolerance NEUROLOGIC: Absent: headache, focal weakness or paresthesias, dizziness, unsteady gait, seizure, mental status changes, bladder or bowel incontinence PSYCHIATRIC: Absent: anxiety, depression, suicidal or homicidal ideation, hallucinations. PHYSICAL EXAMINATION Vital Signs - 24 hr 05/19/19 13:33 Temperature 98.3 F Pulse Rate 85 Respiratory 16 Rate Blood Pressure 117/82 O2 Sat by Pulse 99 Oximetry (%) GENERAL: awake, alert, and fully oriented no acute distress HEAD: normal with no signs of trauma EYES: pupils equal, round and reactive to light, nonicteric EARS, NOSE, THROAT: ears normal, nares patent NECK: no JVD LUNGS: breath sounds equal clear to auscultation bilaterally no wheezes and no crackles no accessory muscle use HEART: regular rate and rhythm normal S1 and S2 ABDOMEN no acute abdomen no guarding nontender on light palpation MUSCULOSKELETAL: normal range of motion at all joints UPPER EXTREMITIES: 2+ pulses warm well-perfused LOWER EXTREMITIES: 2+ pulses warm, well-perfused no pitting edema NEUROLOGICAL: normal speech no focal neuro deficits PSYCHIATRIC: cooperative good eye contact appropriate mood SKIN: warm and dry no rashes or lesions Laboratory Results - last 24 hr 05/19/19 05/19/19 05/19/19 15:22 15:30 15:30 WBC 8.7 RBC 5.10 Hgb 15.6 H Hct 45.1 D MCV 88.4 MCH 30.5 MCHC 34.6 RDW 14.5 Plt Count 311 D MPV 9.4 Absolute Neuts (auto) 6.4 Neutrophils % 73.9 Lymphocytes % 17.2 D Monocytes % 7.7 Eosinophils % 0.5 Basophils % 0.7 Nucleated RBC % 0 Sodium 141 Potassium 4.1 Chloride 101 Carbon Dioxide 30 Anion Gap 10 BUN 14.8 Creatinine 1.0 Est GFR (CKD-EPI)AfAm 72.93 Est GFR (CKD-EPI)NonAf 62.93 Random Glucose 127 H Calcium 10.0 Total Bilirubin 4.5 H D AST 469 H ALT 916 H Alkaline Phosphatase 563 H Total Protein 7.8 Albumin 4.2 Lipase 611 H Urine Color Urine Appearance Urine pH Ur Specific [place] Urine Protein Urine Glucose (UA) Urine Ketones Urine Blood Urine Nitrite Urine Bilirubin Urine Urobilinogen Ur Leukocyte Esterase Urine WBC (Auto) Urine RBC (Auto) Urine Casts (Auto) U Pathogenic Cast Auto U Epithel Cells (Auto) U Sm Round Cell (Auto) Urine Bacteria (Auto) Blood Type A POSITIVE Antibody Screen Negative 05/19/19 15:30 WBC RBC Hgb Hct MCV MCH MCHC RDW Plt Count MPV Absolute Neuts (auto) Neutrophils % Lymphocytes % Monocytes % Eosinophils % Basophils % Nucleated RBC % Sodium Potassium Chloride Carbon Dioxide Anion Gap BUN Creatinine Est GFR (CKD-EPI)AfAm Est GFR (CKD-EPI)NonAf Random Glucose Calcium Total Bilirubin AST ALT Alkaline Phosphatase Total Protein Albumin Lipase Urine Color Dk yellow Urine Appearance Turbid Urine pH 5.5 Ur Specific [place] 1.026 Urine Protein 1+ H Urine Glucose (UA) Negative Urine Ketones 2+ H Urine Blood 2+ H Urine Nitrite Positive H Urine Bilirubin 2+ H Urine Urobilinogen 1.0 Ur Leukocyte Esterase 1+ H Urine WBC (Auto) 9 Urine RBC (Auto) 4.2 Urine Casts (Auto) 83 U Pathogenic Cast Auto None seen U Epithel Cells (Auto) 7.3 U Sm Round Cell (Auto) None seen Urine Bacteria (Auto) 5.5 Blood Type Antibody Screen ASSESSMENT/PLAN: In summary this is a 58 year old Burmese speaking female with history of hypothyroidism and laparscopic cholecystectomy on 05/01/[address] Davis for acute cholecystitis. She presented today with ? right lower abdominal pain associated with nausea, and vomiting. Upon evaluation she was found to have a normal WBC, elevated LFT's (ast 469, alt 916, total bilirubinin 4.5)and lipase of 611. As per Radiology report CT scan of abdomen showed no biliary tract dilatation, mild appendiceal wall thickening (not seen on prior CT scan) and possible early acute appendicitis. She is currently afebrile and hemodynamically stable. She is being admitted to [facility] for further medical evaluation and management. #1 Abdominal Pain/ Transaminitis / S/P Laparscopic Cholecystectomy/ R/O Appendicitis --Keep NPO --IVF NS @75cc/hr --Surgery- Dr. Davis consulted --GI- Dr. Childs consulted --Avoid use of tylenol, one dose of IV morphine 2 mg ordered for severe pain --Check amylase level --Zofran prn, monitor Qtc interval for prolongation #2 Hypothyroidism --continue with synthroid --check TSH #3 UTI UA -+nitrite, 1+ leukoesterase, @+ blood , no leukocytosis and afebrile -urine culture pending -IV ceftriaxone 1 gm ordered FEN --NPO --IVF NS @ 75cc/hr --monitor electrolytes closely DVT Prophylaxsis -SCD's Visit type - Emergency Visit Emergency Visit: Yes ED Registration Date: 05/19/19 Care time: The patient presented to the Emergency Department on the above date and was hospitalized for further evaluation of their emergent condition. - New Patient This patient is new to me today: Yes Date on this admission: 05/19/19 - Critical Care Critical Care patient: No
[2019-05-19] MEDS ORDERED: ACETAMINOPHEN INJECTION 100 ML IVPB ONE (18:18)
[2019-05-19] MEDS ORDERED: MORPHINE SULFATE 2 MG/ML VIAL IVPUSH ONE (19:14)
[2019-05-19] MEDS ORDERED: SODIUM CHLORIDE 0.45% 1,000 ML IV SCH (19:15)
[2019-05-19] MEDS ORDERED: MORPHINE SULFATE 2 MG/ML VIAL ONE (20:08)
[2019-05-19] MEDS ORDERED: ONDANSETRON 4 MG/2 ML VIAL ONE (20:13)
[2019-05-19] MEDS ORDERED: CEFTRIAXONE 1 GM in DEXTROSE 5%-WATER - 50 ML IVPB ONE (21:01)
[2019-05-19 22:01] VITALS: BMI 21.1
[2019-05-19] MEDS ORDERED: cefTRIAXone SODIUM 1 GM VIAL ONE (22:54)
[2019-05-19] MEDS ORDERED: DEXTROSE 5%-WATER - 50 ML IVPB ONE (22:54)
[2019-05-19] MEDS ORDERED: SODIUM CHLORIDE 1,000 ML IV SCH (23:30)
[2019-05-20] MEDS: LEVOTHYROXINE NA 75 MCG TABLET (FP) PO SCH (07:34)
[2019-05-20 09:06] LABS: HEMATOCRIT 39.7 % (32.4-45.2); HEMOGLOBIN 13.2 GM/dL (10.7-15.3); MCH 29.8 pg (25.7-33.7); MCHC 33.3 g/dl (32.0-36.0); MEAN CELL VOLUME 89.5 fl (80-96); MEAN PLT VOLUME 9.8 fl (7.5-11.1); PLATELET COUNT 225 K/MM3 (134-434); RBC 4.44 M/mm3 (3.60-5.2); RDW 14.4 % (11.6-15.6)
[2019-05-20] MEDS: PANTOPRAZOLE 40 MG TABLET (FP) PO SCH (09:33)
[2019-05-20 10:10] LABS: BLOOD UREA NITROGEN 10.9 mg/dL (7-18); CALCIUM 8.4 mg/dL (8.5-10.1); CREATININE 0.8 mg/dL (0.55-1.3); POTASSIUM 3.7 mmol/L (3.5-5.1)
[2019-05-20 10:42] LABS: BILIRUBIN,DIRECT 1.1 mg/dL (0.0-0.2); BILIRUBIN,TOTAL 2.6 mg/dL (0.2-1); TOT PROT 5.7 g/dl (6.4-8.2)
[2019-05-20] MEDS: MORPHINE SULFATE 2 MG/ML VIAL IVPUSH PRN (11:30)
[2019-05-20] MEDS: ONDANSETRON 4 MG/2 ML VIAL IVPUSH PRN (11:30)
--- NOTE | 2019-05-20 11:47 | CON.GI ---
Consult Consult Specialty:: GI Referred by:: Hospitalist Service Reason for Consultation:: Abdominal pain - History of Present Illness Chief Complaint: Rico Preload Supervisor: [id number]: Abdominal pain History of Present Illness: 58F admitted through [facility] ER for evaluation of abdominal pain (epigastric, RUQ and RLQ). She states that she was awoken from the pain at 3 AM this morning and it was accompanied by nausea / Chills. She is S/P Lap Gladys 05/04 for acute cholecystitis. Lfts's noted elevated on admission with ALP 500 Bili 4. This has improved today. CBC was normal. Pain persists. US failed to reveal perihepatic fluid collectons or dilated biliary tree. CT A/P revealed mild cardiolmegaly and ? thickening of the appendix. No fevers reported. She was on no new medications prior to admission. - History Source History Provided By: Patient, Medical Record Limitations to Obtaining History: No Limitations - Past Medical History ...: No Endocrine: Yes: Hypothyroidism - Past Surgical History Past Surgical History: Yes: Cholecystectomy (Laparoscopic (05/04)) Additional Surgical History: LUCIAN/BSO - Alcohol/Substance Use Hx Alcohol Use: No History of Substance Use: reports: None - Smoking History Smoking history: Never smoked Have you smoked in the past 12 months: No Aproximately how many cigarettes per day: 0 - Social History Usual Living Arrangement: With Child ADL: Independent Occupation: Not working Place of : Other ([facility]) History of Recent Travel: No Home Medications - Allergies Allergies/Adverse Reactions: Allergies Allergy/AdvReac Type Severity Reaction Status Date / Time No Known Allergies Allergy Verified 05/01/19 04:41 - Home Medications Home Medications: Ambulatory Orders Levothyroxine [Synthroid -] 75 mcg PO DAILY 12/05/12 Metoclopramide HCl 5 mg PO TID PRN 05/01/19 Pantoprazole Sodium [Protonix] 40 mg PO DAILY 05/01/19 Cefuroxime Axetil [Ceftin -] 500 mg PO BID #10 tablet 05/04/19 Ibuprofen 400 mg PO TID PRN #20 tablet 05/04/19 Family Medical History Other Family History: Father: : thrombosis. Mother: alive, Alzheimer's Dementia. 2 brothers: healthy. 1 daughter: SLE. No family history of colorectal cancer or other GI malignancy Review of Systems - Review of Systems Constitutional: reports: Chills. denies: Fever, Lethargy, Unintentional Wgt. Loss Cardiovascular: denies: Chest Pain, Shortness of Breath Respiratory: denies: Cough Gastrointestinal: reports: Abdominal Pain. denies: Constipation, Diarrhea, Rectal Bleeding Physical Exam-GI Vital Signs: Vital Signs Temperature 98.2 F 05/20/19 10:00 Pulse Rate 66 05/20/19 10:00 Respiratory Rate 18 05/20/19 10:00 Blood Pressure 121/82 05/20/19 10:00 O2 Sat by Pulse Oximetry (%) 96 05/20/19 08:39 Constitutional: Yes: Calm Eyes: Yes: Sclera Icterus Cardiovascular: Yes: Regular Rate and Rhythm. No: Murmur Respiratory: Yes: CTA Bilaterally Gastrointestinal Inspection: Yes: Scars (trochar scars). No: Distention ...Auscultate: Yes: Normoactive Bowel Sounds ...Palpate: Yes: Tenderness (TTP predominantly RUQ. + TTP EPigastruium and RLQ) ...Percussion: No: Tympanitic Edema: No (No LE edema) Neurological: Yes: Alert Labs: CBC, BMP 05/20/19 07:32 05/20/19 07:32 Hepatic Panel Total Bilirubin 2.6 mg/dL (0.2-1) H 05/20/19 07:32 Direct Bilirubin 1.1 mg/dL (0.0-0.2) H 05/20/19 07:32 AST 192 U/L (15-37) H 05/20/19 07:32 ALT 520 U/L (13-61) H 05/20/19 07:32 Alkaline Phosphatase 366 U/L (45-117) H 05/20/19 07:32 Albumin 3.0 g/dl (3.4-5.0) L 05/20/19 07:32 Imaging - Results Cat Scan: Report Reviewed, Image Reviewed Assessment/Plan Abdominal pain: Given new onset of elevated liver chemistries in cholestatic pattern , concern would be for passage of or retained CBD stone / debris. I explained this to Ms. Begum via [employer] rural health consultant [phone] and her daughter via telephone. Explained that ERCP can be performed to further evaluate bile duct, remove stone if necessary and exclude alternate pathology. Discussed potential risks of the procedure like but not limited to bleeding, perforation requiring surgery to repair, infection, sedation medication effects, pancreatitis, all of which could be potentially life threatening. She has agreed to to the procedure and consent obtained. Case D/W Dr. Hays, biliary endoscopist and he was in agreement with the plan. D/W Dr. Davis as well. For now: NPO IV Hydration Indocin suppository ordered 50mg Preprocedure
[2019-05-20] MEDS ORDERED: INDOMETHACIN 50 MG RECTAL SUPPOSITORY PR ONE (11:54)
[2019-05-20] MEDS ORDERED: SODIUM CHLORIDE 1,000 ML IV SCH (12:00)
[2019-05-20] MEDS ORDERED: PIPERACILLIN/TAZOB 3.375 GM 3.375 GM in DEXTROSE 5%-WATER - 50 ML IVPB SCH (12:00)
--- NOTE | 2019-05-20 12:14 | CONSULT ---
- Consultation REQUESTING PROVIDER: Rachna Cadena MD CONSULT REQUEST: We have been asked to surgically evaluate this patient for abdominal pain and jaundice of recent onset. PCP:Sharona Cadena HISTORY OF PRESENT ILLNESS: KARLI who is a 58 y/o female s/p laparoscopic cholecystectomy 05/02/19; she was seen in the office post op and was doing well; she returned to the hospital 05/19/19 w/nausea and vomiting and abdominal pain. She denies fever and/or chills; she has noticed scleral icterus and dark urine. PMHx: GERD/thyroid disease PSHx: lap samuel Home Medications Medication Instructions Recorded Levothyroxine [Synthroid -] 75 mcg PO DAILY 12/05/12 Metoclopramide HCl 5 mg PO TID PRN 05/01/19 Pantoprazole Sodium [Protonix] 40 mg PO DAILY 05/01/19 Cefuroxime Axetil [Ceftin -] 500 mg PO BID #10 tablet 05/04/19 Ibuprofen 400 mg PO TID PRN #20 tablet 05/04/19 Allergies Allergy/AdvReac Type Severity Reaction Status Date / Time No Known Allergies Allergy Verified 05/01/19 04:41 REVIEW OF SYSTEMS: CONSTITUTIONAL: Absent: fever, chills, diaphoresis, generalized weakness, malaise, loss of appetite, weight change CARDIOVASCULAR: Absent: chest pain, syncope, palpitations, irregular heart rate, lightheadedness , peripheral edema RESPIRATORY: Absent: cough, shortness of breath, dyspnea with exertion, wheezing, stridor, hemoptysis GASTROINTESTINAL: Present: abdominal pain, nausea, vomiting, GENITOURINARY: Absent: dysuria, frequency, urgency, hesitancy, hematuria, flank pain, genital pain MUSCULOSKELETAL: Absent: myalgia, arthralgia, joint swelling, back pain, neck pain SKIN: Absent: rash, itching, pallor HEMATOLOGIC/IMMUNOLOGIC: Absent: easy bleeding, easy bruising, lymphadenopathy NEUROLOGIC: Absent: headache, focal weakness, paresthesias, dizziness, unsteady gait, seizure, mental status changes, bladder or bowel incontinence PSYCHIATRIC: Absent: anxiety, depression, suicidal or homicidal ideation, hallucinations. PHYSICAL EXAM: GENERAL: Awake, alert, and fully oriented, in no acute distress. HEAD: Normal with no signs of trauma. EYES: sclera icteric, conjunctiva clear. NECK: Normal ROM, supple without lymphadenopathy, JVD, or masses. ABDOMEN: Soft, nontender, not distended, normoactive bowel sounds, no guarding, no rebound, no masses. No organomegaly. MUSCULOSKELETAL: Normal ROM at all joints. No bony deformities or tenderness. No CVA tenderness. UPPER EXTREMITIES: 2+ pulses, warm, well-perfused. No cyanosis. Cap refill <2 seconds. No peripheral edema. LOWER EXTREMITIES: 2+ pulses, warm, well-perfused. No calf tenderness. No peripheral edema. NEUROLOGICAL: Normal speech, gait not observed. PSYCH: Cooperative. Good eye contact. Appropriate mood and affect. SKIN: Warm, dry, normal turgor, no rashes or lesions noted. Vital Signs Temperature 98.2 F 05/20/19 10:00 Pulse Rate 66 05/20/19 10:00 Respiratory Rate 18 05/20/19 10:00 Blood Pressure 121/82 05/20/19 10:00 O2 Sat by Pulse Oximetry (%) 96 05/20/19 08:39 Lab Results WBC 6.0 K/mm3 (4.0-10.0) 05/20/19 07:32 RBC 4.44 M/mm3 (3.60-5.2) 05/20/19 07:32 Hgb 13.2 GM/dL (10.7-15.3) 05/20/19 07:32 Hct 39.7 % (32.4-45.2) 05/20/19 07:32 MCV 89.5 fl (80-96) 05/20/19 07:32 MCHC 33.3 g/dl (32.0-36.0) 05/20/19 07:32 RDW 14.4 % (11.6-15.6) 05/20/19 07:32 Plt Count 225 K/MM3 (134-434) D 05/20/19 07:32 Sodium 142 mmol/L (136-145) 05/20/19 07:32 Potassium 3.7 mmol/L (3.5-5.1) 05/20/19 07:32 Chloride 106 mmol/L (98-107) 05/20/19 07:32 Carbon Dioxide 28 mmol/L (21-32) 05/20/19 07:32 Anion Gap 8 MMOL/L (8-16) 05/20/19 07:32 BUN 10.9 mg/dL (7-18) 05/20/19 07:32 Creatinine 0.8 mg/dL (0.55-1.3) 05/20/19 07:32 Random Glucose 74 mg/dL (74-106) 05/20/19 07:32 Calcium 8.4 mg/dL (8.5-10.1) L 05/20/19 07:32 Blood Type A POSITIVE 05/19/19 15:30 Antibody Screen Negative 05/19/19 15:30 w/u to date reviewed IMP: r/o CBD stone; doubt bile duct leak and/or CBD injury. PLAN: GI evaluation for ERCP and related procedures. Federico Davis MD FACS
[2019-05-20] MEDS ORDERED: DEXTROSE 5%-WATER - 50 ML IVPB ONE ×2 (12:38→18:19)
[2019-05-20] MEDS ORDERED: PIPERACILLIN/TAZOBACTAM 3.375 GM VIAL IVPB ONE ×2 (12:38→18:19)
[2019-05-20] MEDS: PIPERACILLIN/TAZOB 3.375 GM 3.375 GM in DEXTROSE 5%-WATER - 50 ML IVPB SCH ×3 (12:40→18:27)
[2019-05-20] MEDS ORDERED: IOHEXOL 300 MG/ML INFUS..BTL IV ONE (14:00)
[2019-05-20] MEDS ORDERED: EPINEPHrine 1:10,000 (P-F SYR) 1 MG/10 ML DISP.SYRIN SQ ONE (14:10)
--- NOTE | 2019-05-20 14:47 | PN ---
Progress Note (short form) - Note Progress Note: GI Procedure NOte: Please see ERCP report. A single CBD stone was extracted after making sphincterotomy. Bleeding developed after the stone extraction which required epinephrine injection and biliary stenting to control. She can be referred to my office to arrange repeat ERCP to remove the stent. Need to observe for bleeding and pancreatittis.
[2019-05-20] MEDS ORDERED: LACTATED RINGERS SOLUTION 1,000 ML/1,000 ML INFUS.BAG IV SCH ×2 (15:00→21:00)
[2019-05-20] MEDS ORDERED: ONDANSETRON 4 MG/2 ML VIAL ONE (15:30)
--- NOTE | 2019-05-20 15:41 | PN ---
Teaching Attending Note Name of Resident: Katia Markham ATTENDING PHYSICIAN STATEMENT I saw and evaluated the patient. I reviewed the resident's note and discussed the case with the resident. I agree with the resident's findings and plan as documented. SUBJECTIVE: seen at 11 am No fever or chills. minimal abd pain . pain started in RUQ and radiated to RLQ. OBJECTIVE: NAD CV: RRR Lungs: CTAB. Abd: soft, NL BS , TTP in RUQ and RLQ ( mainly RUQ) Ext : No edema or erythema ASSESSMENT AND PLAN: 58 y/o lady with h/o recent cholecystitis s/p CCY , and UTI who presented with worsening Abd pain. she was found to have transaminitis 1- Abd pain and transaminitis, due to CBD stone . despite findings of CT of thickened appendix, she clinically does not have signs of acute appendicitis. - sx eval pending recs - S/p ERCP with extraction of stone - IVF - On zosyn per GI, insetting of obstruction and john-procedure - ID consult for abx approval /management - No chemical DVT px for at least 72 hrs . - No signs of UTI . U cx with group D strep in low colony numbers
--- NOTE | 2019-05-20 16:27 | PN ---
Physical Exam: SUBJECTIVE: Patient seen and examined 58 y/o F, pmh of hypothyroidism and acute cholecystitis s/p laparscopic cholecystectomy on 05/01/[address] Davis, presents w/ nausea and NBNB vomiting of 2 week duration which has worsened over the last few days. Today pt has improved and c/o no more symptoms. Pt feels better except for abdominal pain. Spoke to the daughter over the phone and she reports that her mother feels better but symptoms would likely reappear. Denies f/c/sob/chest pain. OBJECTIVE: Vital Signs Last Vital Signs Temp Pulse Resp BP Pulse Ox 97.7 F 56 L 16 162/73 100 05/20/19 14:29 05/20/19 16:18 05/20/19 16:18 05/20/19 16:18 05/20/19 16:18 Laboratory Results - last 24 hr CBC,CMP WBC 6.0 K/mm3 (4.0-10.0) 05/20/19 07:32 RBC 4.44 M/mm3 (3.60-5.2) 05/20/19 07:32 Hgb 13.2 GM/dL (10.7-15.3) 05/20/19 07:32 Hct 39.7 % (32.4-45.2) 05/20/19 07:32 MCV 89.5 fl (80-96) 05/20/19 07:32 MCH 29.8 pg (25.7-33.7) 05/20/19 07:32 MCHC 33.3 g/dl (32.0-36.0) 05/20/19 07:32 RDW 14.4 % (11.6-15.6) 05/20/19 07:32 Plt Count 225 K/MM3 (134-434) D 05/20/19 07:32 MPV 9.8 fl (7.5-11.1) 05/20/19 07:32 Absolute Neuts (auto) 6.4 K/mm3 (1.5-8.0) 05/19/19 15:30 Neutrophils % 73.9 % (42.8-82.8) 05/19/19 15:30 Lymphocytes % 17.2 % (8-40) D 05/19/19 15:30 Monocytes % 7.7 % (3.8-10.2) 05/19/19 15:30 Eosinophils % 0.5 % (0-4.5) 05/19/19 15:30 Basophils % 0.7 % (0-2.0) 05/19/19 15:30 Nucleated RBC % 0 % (0-0) 05/19/19 15:30 Sodium 142 mmol/L (136-145) 05/20/19 07:32 Potassium 3.7 mmol/L (3.5-5.1) 05/20/19 07:32 Chloride 106 mmol/L (98-107) 05/20/19 07:32 Carbon Dioxide 28 mmol/L (21-32) 05/20/19 07:32 Anion Gap 8 MMOL/L (8-16) 05/20/19 07:32 BUN 10.9 mg/dL (7-18) 05/20/19 07:32 Creatinine 0.8 mg/dL (0.55-1.3) 05/20/19 07:32 Est GFR (CKD-EPI)AfAm 95.52 05/20/19 07:32 Est GFR (CKD-EPI)NonAf 82.42 05/20/19 07:32 Random Glucose 74 mg/dL (74-106) 05/20/19 07:32 Calcium 8.4 mg/dL (8.5-10.1) L 05/20/19 07:32 Total Bilirubin 2.6 mg/dL (0.2-1) H 05/20/19 07:32 Direct Bilirubin 1.1 mg/dL (0.0-0.2) H 05/20/19 07:32 AST 192 U/L (15-37) H 05/20/19 07:32 ALT 520 U/L (13-61) H 05/20/19 07:32 Alkaline Phosphatase 366 U/L (45-117) H 05/20/19 07:32 Total Protein 5.7 g/dl (6.4-8.2) L 05/20/19 07:32 Albumin 3.0 g/dl (3.4-5.0) L 05/20/19 07:32 Total Amylase 113 U/L (25-115) 05/20/19 07:32 Lipase 611 U/L (73-393) H 05/19/19 15:22 TSH 1.11 uIU/ml (0.358-3.74) 05/20/19 07:32 Active Medications Current Medications Piperacillin Sod/Tazobactam (Sod 3.375 gm/ Dextrose) 50 mls @ 100 mls/hr IVPB Q8H-IV [facility]; Protocol Piperacillin Sod/Tazobactam (Sod 3.375 gm/ Dextrose) 50 mls @ 100 mls/hr IVPB Q8H-IV [facility]; Protocol Stop: 05/21/19 12:14 Last Admin: 05/20/19 12:40 Dose: 100 mls/hr Lactated Ringer's (Lactated Ringers Solution) 1,000 ml in 1,000 mls @ 250 mls/ hr IV ASDIR [facility] Stop: 05/20/19 21:00 Last Admin: 05/20/19 15:00 Dose: 250 mls/hr Lactated Ringer's (Lactated Ringers Solution) 1,000 ml in 1,000 mls @ 200 mls/ hr IV ASDIR [facility] Stop: 05/21/19 03:00 Lactated Ringer's (Lactated Ringers Solution) 1,000 ml in 1,000 mls @ 175 mls/ hr IV ASDIR [facility] Stop: 05/21/19 11:00 Lactated Ringer's (Lactated Ringers Solution) 1,000 ml in 1,000 mls @ 150 mls/ hr IV ASDIR [facility] Stop: 05/21/19 19:00 Lactated Ringer's (Lactated Ringers Solution) 1,000 ml in 1,000 mls @ 125 mls/ hr IV ASDIR [facility] Levothyroxine Sodium (Synthroid -) 75 mcg PO AM [facility] Last Admin: 05/20/19 07:34 Dose: 75 mcg Morphine Sulfate (Morphine Sulfate) 2 mg IVPUSH Q4H PRN PRN Reason: PAIN LEVEL 6-10 Last Admin: 05/20/19 11:30 Dose: 2 mg Ondansetron HCl (Zofran Injection) 4 mg IVPUSH Q6H PRN PRN Reason: NAUSEA AND/OR VOMITING Last Admin: 05/20/19 11:30 Dose: 4 mg Pantoprazole Sodium (Protonix -) 40 mg PO DAILY [facility] Last Admin: 05/20/19 09:33 Dose: 40 mg Home Medications Medication Instructions Recorded Levothyroxine [Synthroid -] 75 mcg PO DAILY 12/05/12 Metoclopramide HCl 5 mg PO TID 05/01/19 Pantoprazole Sodium [Protonix] 40 mg PO DAILY 05/01/19 Hydroxyzine HCl 25 mg PO DAILY PRN 05/20/19 ASSESSMENT/PLAN: 58 y/o F, pmh of hypothyroidism and acute cholecystitis s/p laparscopic cholecystectomy, presents w/ worsening nausea and vomiting #Abdominal pain w/ N/V likely 2/2 to choledocholithiasis Pt had a ERCP done, per GI, she need another ERCP outpt Consult ID for Abx approval- currently on Zosyn Continue IVF- LR at 150 void use of tylenol Amylase level- 133 today Zofran prn, monitor Qtc interval for prolongation GI consulted- appreciate recommendation f/u coags #Hypothyroidism cont levothyroxine TSH 1.11 #DVT ppx SCDs no ppx for 72hrs FEN LR at 150 Clear liquid diet Dispo: f/u w/ ID, f/u the next ERCP Visit type - Emergency Visit Emergency Visit: Yes ED Registration Date: 05/19/19 Care time: The patient presented to the Emergency Department on the above date and was hospitalized for further evaluation of their emergent condition. - New Patient This patient is new to me today: Yes Date on this admission: 05/21/19 - Critical Care Critical Care patient: No - Discharge Referral Referred to [facility] No ATTENDING PHYSICIAN STATEMENT I saw and evaluated the patient. I reviewed the resident's note and discussed the case with the resident. I agree with the resident's findings and plan as documented. SUBJECTIVE: OBJECTIVE: ASSESSMENT AND PLAN:
[2019-05-20] MEDS: amLODIPine BESYLATE 5 MG TABLET (FP) PO SCH (17:46)
[2019-05-20 21:51] LABS: BASO % 0.8 % (0-2.0); EOS % 0.9 % (0-4.5); HEMATOCRIT 38.5 % (32.4-45.2); LYMPH % 22.7 % (8-40); MCH 29.6 pg (25.7-33.7); MCHC 33.7 g/dl (32.0-36.0); MEAN CELL VOLUME 87.7 fl (80-96); MEAN PLT VOLUME 9.8 fl (7.5-11.1); MONO % 7.1 % (3.8-10.2); NEUT % 68.5 % (42.8-82.8); PLATELET COUNT 213 K/MM3 (134-434); RBC 4.39 M/mm3 (3.60-5.2); RDW 14.3 % (11.6-15.6); WHITE BLOOD COUNT 7.7 K/mm3 (4.0-10.0)
[2019-05-20 22:10] LABS: INR 1.16 (0.83-1.09); PROTHROMBIN TIME (PATIENT) 13.7 SEC (9.7-13.0)
[2019-05-21] MEDS ORDERED: PIPERACILLIN/TAZOBACTAM 3.375 GM VIAL IVPB ONE ×2 (01:27→09:57)
[2019-05-21] MEDS ORDERED: DEXTROSE 5%-WATER - 50 ML IVPB ONE ×2 (01:27→09:57)
[2019-05-21] MEDS: PIPERACILLIN/TAZOB 3.375 GM 3.375 GM in DEXTROSE 5%-WATER - 50 ML IVPB SCH ×2 (01:34→10:15)
[2019-05-21] MEDS ORDERED: LACTATED RINGERS SOLUTION 1,000 ML/1,000 ML INFUS.BAG IV SCH ×3 (03:00→19:00)
[2019-05-21] MEDS: MORPHINE SULFATE 2 MG/ML VIAL IVPUSH PRN ×2 (06:00→13:26)
[2019-05-21] MEDS: LEVOTHYROXINE NA 75 MCG TABLET (FP) PO SCH (06:01)
--- NOTE | 2019-05-21 07:56 | PN.GI ---
GI Progress Note Subjective: complains of reflux and would like to eat more solid food - denies abdominal pain /nausea/ vomiting/ melena/ brbr - Objective Vital Signs: Vital Signs Temperature 98.2 F 05/21/19 06:00 Pulse Rate 58 L 05/21/19 06:00 Respiratory Rate 18 05/21/19 06:00 Blood Pressure 130/74 05/21/19 06:00 O2 Sat by Pulse Oximetry (%) 96 05/20/19 21:00 Constitutional: Well Nourished, No Distress, Calm Eyes: Yes: WNL HENT: Yes: WNL Neck: Yes: WNL Cardiovascular: Yes: WNL Respiratory: Yes: WNL, Regular, CTA Bilaterally Gastrointestinal Inspection: Yes: WNL ...Auscultate: Yes: Normoactive Bowel Sounds Musculoskeletal: Yes: WNL Edema: No Labs: CBC, BMP 05/20/19 20:45 05/20/19 07:32 INR, PTT INR 1.16 (0.83-1.09) H 05/20/19 20:45 Problem List - Problems (1) Choledocholithiasis Assessment/Plan: advance to full liquid diet monitor h/h & LFT qd abx pepcid added for dyspepsia surgery f/u Code(s): K80.50 - CALCULUS OF BILE DUCT W/O CHOLANGITIS OR CHOLECYST W/O OBST (2) Transaminitis Code(s): R74.0 - NONSPEC ELEV OF LEVELS OF TRANSAMNS & LACTIC ACID DEHYDRGNSE (3) Acute calculous cholecystitis Code(s): K80.00 - CALCULUS OF GALLBLADDER W ACUTE CHOLECYST W/O OBSTRUCTION (4) S/P laparoscopic cholecystectomy Code(s): Z90.49 - ACQUIRED ABSENCE OF OTHER SPECIFIED PARTS OF DIGESTIVE TRACT
[2019-05-21] MEDS: ONDANSETRON 4 MG/2 ML VIAL IVPUSH PRN (08:51)
[2019-05-21 09:16] LABS: EOS % 3.2 % (0-4.5); HEMATOCRIT 40.8 % (32.4-45.2); HEMOGLOBIN 14.2 GM/dL (10.7-15.3); LYMPH % 18.2 % (8-40); MCHC 34.8 g/dl (32.0-36.0); MEAN CELL VOLUME 89.3 fl (80-96); MEAN PLT VOLUME 10.2 fl (7.5-11.1); MONO % 6.5 % (3.8-10.2); NEUT % 71.1 % (42.8-82.8); PLATELET COUNT 229 K/MM3 (134-434); RBC 4.57 M/mm3 (3.60-5.2); RDW 14.1 % (11.6-15.6); WHITE BLOOD COUNT 7.5 K/mm3 (4.0-10.0)
[2019-05-21 09:50] LABS: INR 1.08 (0.83-1.09); PROTHROMBIN TIME (PATIENT) 12.7 SEC (9.7-13.0)
[2019-05-21 09:52] LABS: ALBUMIN 3.6 g/dl (3.4-5.0); BILIRUBIN,DIRECT 1.1 mg/dL (0.0-0.2); BLOOD UREA NITROGEN 6.2 mg/dL (7-18); CALCIUM 8.5 mg/dL (8.5-10.1); CREATININE 0.8 mg/dL (0.55-1.3); POTASSIUM 3.4 mmol/L (3.5-5.1); TOT PROT 6.5 g/dl (6.4-8.2)
[2019-05-21] MEDS: amLODIPine BESYLATE 5 MG TABLET (FP) PO SCH (10:14)
[2019-05-21] MEDS: PANTOPRAZOLE 40 MG TABLET (FP) PO SCH (10:14)
--- NOTE | 2019-05-21 12:47 | CON.ID ---
Consult Consult Specialty:: infectious diseases Referred by:: Dr. Cadena Reason for Consultation:: cholecystitis - History of Present Illness Chief Complaint: abd pain History of Present Illness: 58 year old female with history of hypothyroidism and laparscopic cholecystectomy on 05/01/2019 for acute cholecystitis. She presents with right lower abdominal pain associated with nausea, and vomiting. She denied fever, chills, chest pain or shortness of breath. patient was worked up and found to have increased lft and other enzymes CT of abdomen revealed no biliary tract dilatation, mild appendiceal wall thickening patient was seen by gi and found to ahve cbd stone and ercp done and stone was extracted patient currently feels much better - History Source History Provided By: Family Member Limitations to Obtaining History: Language Barrier - Past Medical History ...: No Endocrine: Yes: Hypothyroidism - Past Surgical History Past Surgical History: Yes: Cholecystectomy (Laparoscopic (05/04)) Additional Surgical History: LUCIAN/BSO - Alcohol/Substance Use Hx Alcohol Use: No History of Substance Use: reports: None - Smoking History Smoking history: Never smoked Have you smoked in the past 12 months: No Aproximately how many cigarettes per day: 0 - Social History Usual Living Arrangement: With Child ADL: Independent Occupation: Not working History of Recent Travel: No Home Medications - Allergies Allergies/Adverse Reactions: Allergies Allergy/AdvReac Type Severity Reaction Status Date / Time No Known Allergies Allergy Verified 05/01/19 04:41 - Home Medications Home Medications: Ambulatory Orders Levothyroxine [Synthroid -] 75 mcg PO DAILY 12/05/12 Metoclopramide HCl 5 mg PO TID 05/01/19 Pantoprazole Sodium [Protonix] 40 mg PO DAILY 05/01/19 Hydroxyzine HCl 25 mg PO DAILY PRN 05/20/19 Review of Systems - Review of Systems Constitutional: reports: No Symptoms Eyes: reports: No Symptoms HENT: reports: No Symptoms, Ocular Prosthesis Cardiovascular: reports: No Symptoms Respiratory: reports: No Symptoms Gastrointestinal: reports: Abdominal Pain Musculoskeletal: reports: No Symptoms Integumentary: reports: No Symptoms Neurological: reports: No Symptoms Endocrine: reports: No Symptoms Hematology/Lymphatic: reports: No Symptoms Psychiatric: reports: No Symptoms Physical Exam Vital Signs: Vital Signs Temperature 98.7 F 05/21/19 09:11 Pulse Rate 61 05/21/19 09:11 Respiratory Rate 18 05/21/19 09:11 Blood Pressure 139/74 05/21/19 09:11 O2 Sat by Pulse Oximetry (%) 94 L 05/21/19 09:00 Constitutional: Yes: Well Nourished, No Distress, Calm HENT: Yes: Atraumatic, Normocephalic Neck: Yes: Supple, Trachea Midline Cardiovascular: Yes: Regular Rate and Rhythm Respiratory: Yes: Regular, CTA Bilaterally Gastrointestinal: Yes: Normal Bowel Sounds, Soft Musculoskeletal: Yes: WNL Extremities: Yes: WNL Neurological: Yes: Alert, Oriented Psychiatric: Yes: Alert, Oriented Labs: CBC, BMP 05/21/19 08:05 05/21/19 08:05 Imaging - Results Chest X-ray: Report Reviewed, Image Reviewed Cat Scan: Report Reviewed, Image Reviewed Assessment/Plan 58 y/o lady with h/o recent cholecystitis s/p CCY , and UTI who presented with worsening Abd pain plan continue abx for now close watch if patient remains stab;e will deescalte rest as per the team
--- NOTE | 2019-05-21 13:16 | PN ---
Progress Note (short form) - Note Progress Note: Attending Surgeon No c/o; tolerating liquids VSS AF abdo-soft; flat and non tender LFT's trending down; bili 3.0 anylase normal. IMP: improving PLAN: Continue present tx. as per primary team and GI. Federico Davis MD FACS
--- NOTE | 2019-05-21 14:39 | PN ---
Physical Exam: SUBJECTIVE: Patient seen and examined 58 y/o F, pmh of hypothyroidism and acute cholecystitis s/p laparscopic cholecystectomy on 05/01/[address] Davis, presents w/ nausea and NBNB vomiting of 2 week duration which has worsened over the last few days. Pt symptoms have improved and c/o no more symptoms. Pt feels better except for abdominal pain. Spoke to the daughter over the phone and she reports that her mother feels better but over night she had one episode of burning sensation which made her short of breath for a few seconds, that resolved on its own. Denies f/c/sob/chest pain. OBJECTIVE: Vital Signs Last Vital Signs Temp Pulse Resp BP Pulse Ox 98.7 F 61 18 139/74 94 L 05/21/19 09:11 05/21/19 09:11 05/21/19 09:11 05/21/19 09:11 05/21/19 09:00 GENERAL: The patient is awake, not oriented and in no acute distress. EYES: PERRL, extraocular movements intact, sclera anicteric ENT: moist mucous membranes. NECK: supple. LUNGS: Breath sounds equal, Wheezing preent b/l, no crackles, HEART: Regular rate and rhythm, S1, S2 without murmur, rub or gallop. ABDOMEN: Soft, nontender, nondistended, normoactive bowel sounds, no guarding EXTREMITIES: 2+ pulses, warm, left shoulder swollen compared to right shoulder. Left and right forearms swollen and bruised NEUROLOGICAL: patient is difficult to asses SKIN: Warm, dry Laboratory Results - last 24 hr Active Medications Home Medications Medication Instructions Recorded Levothyroxine [Synthroid -] 75 mcg PO DAILY 12/05/12 Metoclopramide HCl 5 mg PO TID 05/01/19 Pantoprazole Sodium [Protonix] 40 mg PO DAILY 05/01/19 Hydroxyzine HCl 25 mg PO DAILY PRN 05/20/19 Current Medications Amlodipine Besylate (Norvasc -) 5 mg PO DAILY [facility] Last Admin: 05/21/19 10:14 Dose: 5 mg Piperacillin Sod/Tazobactam (Sod 3.375 gm/ Dextrose) 50 mls @ 100 mls/hr IVPB Q8H-IV [facility]; Protocol Lactated Ringer's (Lactated Ringers Solution) 1,000 ml in 1,000 mls @ 150 mls/ hr IV ASDIR [facility] Stop: 05/21/19 19:00 Last Admin: 05/21/19 10:15 Dose: 150 mls/hr Lactated Ringer's (Lactated Ringers Solution) 1,000 ml in 1,000 mls @ 125 mls/ hr IV ASDIR [facility] Famotidine/Sodium Chloride (Pepcid 20 Mg Premixed Ivpb -) 20 mg in 50 mls @ 100 mls/hr IVPB BID [facility] Levothyroxine Sodium (Synthroid -) 75 mcg PO AM [facility] Last Admin: 05/21/19 06:01 Dose: 75 mcg Ondansetron HCl (Zofran Injection) 4 mg IVPUSH Q6H PRN PRN Reason: NAUSEA AND/OR VOMITING Last Admin: 05/21/19 08:51 Dose: 4 mg Pantoprazole Sodium (Protonix -) 40 mg PO DAILY [facility] Last Admin: 05/21/19 10:14 Dose: 40 mg Tramadol HCl (Ultram -) 50 mg PO ONCE ONE Stop: 05/21/19 13:34 ASSESSMENT/PLAN: 58 y/o F, pmh of hypothyroidism and acute cholecystitis s/p laparscopic cholecystectomy, presents w/ worsening nausea and vomiting #Abdominal pain w/ N/V likely 2/2 to choledocholithiasis Pt had a ERCP done, per GI, she need another ERCP outpt Consult ID for Abx approval- currently on Zosyn Continue IVF- LR at 150 Avoid use of tylenol Amylase level- 96 today Zofran prn, monitor Qtc interval for prolongation GI consulted- appreciate recommendation Coags- PT-12.7, INR 1.08 today advance to full liquid diet monitor h/h & LFT QD Pepcid added for dyspepsia As per surgery- LFT's trending down; bili 3.0 #Hypothyroidism cont levothyroxine #DVT ppx SCDs no ppx for 72hrs FEN LR at 150 Clear liquid diet Dispo: f/u w/ ID, f/u the next ERCP Visit type - Emergency Visit Emergency Visit: Yes ED Registration Date: 05/19/19 Care time: The patient presented to the Emergency Department on the above date and was hospitalized for further evaluation of their emergent condition. - New Patient This patient is new to me today: Yes Date on this admission: 05/23/19 - Critical Care Critical Care patient: No - Discharge Referral Referred to [facility] No ATTENDING PHYSICIAN STATEMENT I saw and evaluated the patient. I reviewed the resident's note and discussed the case with the resident. I agree with the resident's findings and plan as documented. SUBJECTIVE: OBJECTIVE: ASSESSMENT AND PLAN:
[2019-05-21] MEDS: FAMOTIDINE 20 MG/50 ML IVPB 20 MG/50 ML MG IVPB SCH ×2 (16:16→21:10)
--- NOTE | 2019-05-21 17:28 | PN ---
Teaching Attending Note Name of Resident: Gallo Curry ATTENDING PHYSICIAN STATEMENT I saw and evaluated the patient. I reviewed the resident's note and discussed the case with the resident. I agree with the resident's findings and plan as documented. SUBJECTIVE: Box Lidder rizwana [id number] used. No fever or chills. No ROSAS. has heart burn. has no abd pain. no diarrhea. no N/ V. she feels much better OBJECTIVE: NAD. CV: RRR. Lungs: CTAB. Abd: soft, NL BS, minimal TTp in RUQ , no rebound tenderness or guarding. Ext: No edema or erythema ASSESSMENT AND PLAN: 58 y/o lady with h/o recent cholecystitis s/p CCY , and UTI who presented with worsening Abd pain. she was found to have transaminitis 1- Abd pain and transaminitis, due to CBD stone. - S/p ERCP with extraction of stone - symptomatically, she is better and her LFTS are down , except for Bili. Monitor Bili in am - d/w ID. cont zosyn for now - No chemical DVT px for at least 72 hrs after procedure . SCDs
[2019-05-21] MEDS: traMADol HCL 50 MG TABLET PO ONE ×2 (21:10→21:17)
[2019-05-21] MEDS ORDERED: traMADol HCL 50 MG TABLET PO ONE (21:15)
[2019-05-22] MEDS: LEVOTHYROXINE NA 75 MCG TABLET (FP) PO SCH (06:28)
--- NOTE | 2019-05-22 06:53 | PN.GI ---
GI Progress Note Subjective: no new complaints feeling well denies abd pain / n/v/ d/c melena / brbr - Objective Vital Signs: Vital Signs Temperature 98.9 F 05/22/19 01:00 EST Pulse Rate 82 05/22/19 01:00 EST Respiratory Rate 18 05/22/19 01:00 EST Blood Pressure 126/72 05/22/19 01:00 EST O2 Sat by Pulse Oximetry (%) 94 L 05/21/19 21:00 Constitutional: Well Nourished, No Distress, Calm Eyes: Yes: WNL HENT: Yes: WNL Neck: Yes: WNL Cardiovascular: Yes: WNL Respiratory: Yes: WNL, Regular, CTA Bilaterally Musculoskeletal: Yes: WNL Extremities: Yes: WNL Edema: No Labs: CBC, BMP 05/21/19 08:05 05/21/19 08:05 INR, PTT INR 1.08 (0.83-1.09) 05/21/19 08:05 Problem List - Problems (1) Choledocholithiasis Assessment/Plan: diet as tolerated complete abx course no objection to DC home from a GI perspective with outpt GI f/u Code(s): K80.50 - CALCULUS OF BILE DUCT W/O CHOLANGITIS OR CHOLECYST W/O OBST (2) Transaminitis Code(s): R74.0 - NONSPEC ELEV OF LEVELS OF TRANSAMNS & LACTIC ACID DEHYDRGNSE (3) Acute calculous cholecystitis Code(s): K80.00 - CALCULUS OF GALLBLADDER W ACUTE CHOLECYST W/O OBSTRUCTION (4) S/P laparoscopic cholecystectomy Code(s): Z90.49 - ACQUIRED ABSENCE OF OTHER SPECIFIED PARTS OF DIGESTIVE TRACT
[2019-05-22 07:35] LABS: BASO % 1.1 % (0-2.0); EOS % 5.7 % (0-4.5); HEMATOCRIT 39.5 % (32.4-45.2); HEMOGLOBIN 13.3 GM/dL (10.7-15.3); LYMPH % 36.1 % (8-40); MCH 29.7 pg (25.7-33.7); MCHC 33.6 g/dl (32.0-36.0); MEAN CELL VOLUME 88.3 fl (80-96); MEAN PLT VOLUME 9.4 fl (7.5-11.1); MONO % 8.8 % (3.8-10.2); NEUT % 48.3 % (42.8-82.8); PLATELET COUNT 191 K/MM3 (134-434); RBC 4.47 M/mm3 (3.60-5.2); WHITE BLOOD COUNT 4.5 K/mm3 (4.0-10.0)
[2019-05-22] MEDS ORDERED: PIPERACILLIN/TAZOB 3.375 GM 3.375 GM in DEXTROSE 5%-WATER - 50 ML IVPB SCH (07:45)
[2019-05-22] MEDS ORDERED: PIPERACILLIN/TAZOBACTAM 3.375 GM VIAL IVPB ONE (08:16)
[2019-05-22] MEDS ORDERED: DEXTROSE 5%-WATER - 50 ML IVPB ONE (08:17)
[2019-05-22 08:24] LABS: ALBUMIN 3.3 g/dl (3.4-5.0); BILIRUBIN,TOTAL 2.6 mg/dL (0.2-1); BLOOD UREA NITROGEN 4.7 mg/dL (7-18); CALCIUM 8.5 mg/dL (8.5-10.1); CREATININE 0.7 mg/dL (0.55-1.3); POTASSIUM 3.1 mmol/L (3.5-5.1)
[2019-05-22 09:18] VITALS: PULSE 70; TEMP 98.6
[2019-05-22] MEDS: amLODIPine BESYLATE 5 MG TABLET (FP) PO SCH (09:54)
--- NOTE | 2019-05-22 11:06 | PN ---
Progress Note, Physician History of Present Illness: stable no complaints - Current Medication List Current Medications: Active Medications Amlodipine Besylate (Norvasc -) 5 mg PO DAILY [facility] Last Admin: 05/22/19 09:54 Dose: 5 mg Lactated Ringer's (Lactated Ringers Solution) 1,000 ml in 1,000 mls @ 125 mls/ hr IV ASDIR [facility] Last Admin: 05/21/19 19:11 Dose: 125 mls/hr Famotidine/Sodium Chloride (Pepcid 20 Mg Premixed Ivpb -) 20 mg in 50 mls @ 100 mls/hr IVPB BID [facility] Last Admin: 05/21/19 21:10 Dose: 100 mls/hr Piperacillin Sod/Tazobactam (Sod 3.375 gm/ Dextrose) 50 mls @ 100 mls/hr IVPB Q8H-IV [facility]; Protocol Last Admin: 05/22/19 09:54 Dose: 100 mls/hr Levothyroxine Sodium (Synthroid -) 75 mcg PO AM [facility] Last Admin: 05/22/19 06:28 Dose: 75 mcg Ondansetron HCl (Zofran Injection) 4 mg IVPUSH Q6H PRN PRN Reason: NAUSEA AND/OR VOMITING Last Admin: 05/21/19 08:51 Dose: 4 mg - Objective Vital Signs: Vital Signs Temperature 98.6 F 05/22/19 09:00 Pulse Rate 70 05/22/19 09:00 Respiratory Rate 18 05/22/19 09:00 Blood Pressure 133/86 05/22/19 09:00 O2 Sat by Pulse Oximetry (%) 96 05/22/19 09:00 Constitutional: Yes: No Distress, Calm Cardiovascular: Yes: S1, S2 Respiratory: Yes: Regular, CTA Bilaterally Gastrointestinal: Yes: Normal Bowel Sounds, Soft Musculoskeletal: Yes: WNL Extremities: Yes: WNL Neurological: Yes: Alert, Oriented Psychiatric: Yes: Alert, Oriented Labs: CBC, BMP 05/22/19 06:58 05/22/19 06:58 INR, PTT INR 1.08 (0.83-1.09) 05/21/19 08:05 Assessment/Plan 58 y/o lady with h/o recent cholecystitis s/p CCY , and UTI who presented with worsening Abd pain plan bilirubin trending down patient stable will stop abx and monitor if patient spikes fever restart abx
[2019-05-22] MEDS: FAMOTIDINE 20 MG/50 ML IVPB 20 MG/50 ML MG IVPB SCH (11:35)
[2019-05-22] MEDS ORDERED: POTASSIUM CHLORIDE TABS 20 MEQ TABLET.ER (FP) PO ONE (12:51)
[2019-05-22 13:58] VITALS: BP 112/64
--- NOTE | 2019-05-22 14:46 | PN ---
Progress Note (short form) - Note Progress Note: Subjective: Woods Manager Buck [id number] was used No fever or chills Objective: Vital Signs: Last Vital Signs Temp Pulse Resp BP Pulse Ox 98.6 F 70 18 112/64 96 05/22/19 13:57 05/22/19 13:57 05/22/19 13:57 05/22/19 13:57 05/22/19 09:00 Laboratory Results - last 24 hr 05/22/19 05/22/19 06:58 06:58 WBC 4.5 RBC 4.47 Hgb 13.3 Hct 39.5 MCV 88.3 MCH 29.7 MCHC 33.6 RDW 14.0 Plt Count 191 MPV 9.4 Absolute Neuts (auto) 2.2 Neutrophils % 48.3 D Lymphocytes % 36.1 D Monocytes % 8.8 Eosinophils % 5.7 H Basophils % 1.1 Nucleated RBC % 0 Sodium 139 Potassium 3.1 L Chloride 101 Carbon Dioxide 30 Anion Gap 8 BUN 4.7 L Creatinine 0.7 Est GFR (CKD-EPI)AfAm 112.26 Est GFR (CKD-EPI)NonAf 96.86 Random Glucose 88 Calcium 8.5 Total Bilirubin 2.6 H AST 94 H ALT 292 H Alkaline Phosphatase 319 H Total Protein 6.0 L Albumin 3.3 L Physical Exam: NAD. CV: RRR. Lungs: CTAB. Abd: soft, NL BS, NT today. Ext: No edema or erythema. ASSESSMENT AND PLAN: 58 y/o lady with h/o recent cholecystitis s/p CCY , and UTI who presented with worsening Abd pain. she was found to have transaminitis 1- Abd pain and transaminitis, due to CBD stone. - S/p ERCP with extraction of stone - symptomatically, she is better and her LFTS are down including the Bili - d/w ID , stop zosyn - D/W Dr. Sandra, - advanced diet to regular . - d/w Dr. Sandra, who agrees with patient discharge - I d/w patient the need for close GI f/u to remove the stent. - LFTS in 1 week - f/u with sx. Visit type - Emergency Visit Emergency Visit: Yes ED Registration Date: 05/19/19 Care time: The patient presented to the Emergency Department on the above date and was hospitalized for further evaluation of their emergent condition. - New Patient This patient is new to me today: No - Critical Care Critical Care patient: No
--- NOTE | 2019-05-23 08:45 | DS ---
Physical Exam: SUBJECTIVE: Patient seen and examined. Pt remains afebrile, asymptomatic w/out any c/o or issues. Denies f/c/n/v/chest pain, sob. OBJECTIVE: Vital Signs Period Temp Pulse Resp BP Sys/Pavon Pulse Ox Last 24 Hr 98.6 F-98.6 F 70-70 18-18 112-133/64-86 96 PHYSICAL EXAM GENERAL: The patient is awake, not oriented and in no acute distress. EYES: PERRL, extraocular movements intact, sclera anicteric ENT: moist mucous membranes. NECK: supple. LUNGS: Breath sounds equal, Wheezing preent b/l, no crackles, HEART: Regular rate and rhythm, S1, S2 without murmur, rub or gallop. ABDOMEN: Soft, nontender, nondistended, normoactive bowel sounds, no guarding EXTREMITIES: 2+ pulses, warm, left shoulder swollen compared to right shoulder. Left and right forearms swollen and bruised NEUROLOGICAL: patient is difficult to asses SKIN: Warm, dry LABS HOSPITAL COURSE: Date of Admission:05/19/19 58 y/o F, pmh of hypothyroidism and acute cholecystitis s/p recent laparscopic cholecystectomy 05/03/19, presents w/ worsening nausea, vomiting and abdominal pain 2/2 to choledocholithiasis. Pt was found to have a CBD stone on ERCP followed by extraction of the stone. S/p procedure, pt's T-bili and LFTs began to trend down. Clinically pt was asymtpomatic, afebrile and without c/o after the ERCP. Pt was discharged home with advise to f/u GI outpt for the removal of her stent. CT a/p- mild concentric appendecial wall thickening, possible early signs of appendicitis. Colonic diverticulosis US: s/p recent cholecystectomy. No signs of biliary dilation ERCP- pending #Abdominal pain w/ N/V likely 2/2 to choledocholithiasis Pt had a ERCP done Avoid use of tylenol Zofran prn, monitor Qtc interval for prolongation monitor h/h & LFT QD Pepcid added for dyspepsia As per surgery- LFT's trending down; bili 3.0 d/w Dr. Sandra, who agrees with patient discharge f/u with sx. d/w patient the need for close GI f/u to remove the stent. LFTS in 1 week Date of Discharge: 05/23/19 Minutes to complete discharge: 35 Discharge Summary Problems reviewed: Yes Reason For Visit: NAUSEA/VOMITING Condition: Improved - Instructions Diet, Activity, Other Instructions: - You were diagnosed with stone in your biliary ducts. a stent was placed - you need this stent removed by Dr. Hays. please call and scheduel an appointment with him for 1 month - please call Dr. Childs's clinic and schedule an appointment in 1 week. ( GI ) - YOu need repeat blood work in 1 week/. Yor primary doctor can order that ( LFTs) - please follow up with Dr. Davis in 2 weeks , he is the surgeon who removed your gall bladder - no heavy lifting > 20 pounds for 2 more weeks - please check your blood pressure daily. cuff was prescribed. take log to your PCP. your blood pressure was very elevated after the procedure . ------ Usted tiene jose bhargavi en las ductas biliarias. Jose stent estaba puesto. Used vas a necesita jose extraccion de stent con el Doctor Saúl. Por favor de llamar weber oficina para jose sharon. Es importante. Por favor de llamar a el Doctor Dwight para jose sharon en jose semana ( gastroentrologist) Used vas a necesita analysis de power en jose semana con weber doctor primario para weber enzimas del higado. Sin levantar objectos pesados mas de 20 libras. [place] Su[place] por favor de tener cuenta de weber pression arterial todos los belen, y escribe los resultados. Por favor de presentar los resultados a weber doctor. Weber pression arterial estaba mart despues de el ERCP. Jason garrison. Referrals: Federico Davis MD [Staff Physician] - 2 Weeks Katia Worley MD [Primary Care Provider] - 1 Week Geovany Childs DO [Staff Physician] - 1 Week Derek Hays MD [Staff Physician] - 1 Month Disposition: HOME - Home Medications Comprehensive Discharge Medication List: Ambulatory Orders Levothyroxine [Synthroid -] 75 mcg PO DAILY 05/19/13 Medical Supply, Miscellaneous [Blood Pressure Cuff] 1 each DAILY #1 each 10/05 This patient is new to me today: Yes Date on this admission: 05/23/19 Emergency Visit: Yes ED Registration Date: 05/19/19 Care time: The patient presented to the Emergency Department on the above date and was hospitalized for further evaluation of their emergent condition. Critical Care patient: No - Discharge Referral Referred to [facility] No ATTENDING PHYSICIAN STATEMENT I saw and evaluated the patient. I reviewed the resident's note and discussed the case with the resident. I agree with the resident's findings and plan as documented. SUBJECTIVE: OBJECTIVE: ASSESSMENT AND PLAN:
== END 2019-05-22 16:50 | disposition home or self-care (01) | DRG 445 ==
LOC: JER 13:18 → JERBED 18:44 → J6S 21:29
PROVIDERS: ADMIT Internal Medicine; ATTEND Internal Medicine
PROC: BF13YZZ Fluoroscopy of Gallbladder and Bile Ducts using Other Contrast (ICD-10-PCS; 2019-05-20)
PROC: 0F798DZ Dilation of Common Bile Duct with Intraluminal Device, Via Natural or Artificial Opening Endoscopic (ICD-10-PCS; 2019-05-20)
PROC: 0FC98ZZ Extirpation of Matter from Common Bile Duct, Via Natural or Artificial Opening Endoscopic (ICD-10-PCS; principal; 2019-05-20 13:45)
DX: K80.50 Calculus of bile duct without cholangitis or cholecystitis without obstruction (principal); K80.00 Calculus of gallbladder with acute cholecystitis without obstruction; N39.0 Urinary tract infection, site not specified; R74.0 Nonspecific elevation of levels of transaminase and lactic acid dehydrogenase [LDH]; E03.9 Hypothyroidism, unspecified
CPT/HCPCS: 36415; 74177-TC; 74330-TC; 76705-TC; 80048; 80053; 80076; 81003; 82150; 82248; 83690; 84443; 85025; 85027; 85610; 86140; 86850; 86900; 86901; 87086; 99284-25; J0131; J7030

== ENCOUNTER 2019-08-26 08:02 | Day surgery (SDC) | payer OTHER ==
[2019-08-26 08:59] VITALS: BMI 22.6
[2019-08-26] MEDS ORDERED: IOHEXOL 300 MG/ML INFUS..BTL IV ONE (13:50)
[2019-08-26] MEDS ORDERED: ACETAMINOPHEN 1000 MG/100 ML VIAL (NON FORMULARY) IVPB ONE (14:14)
[2019-08-26] MEDS ORDERED: LACTATED RINGERS SOLUTION 1,000 ML/1,000 ML INFUS.BAG IV SCH (14:15)
[2019-08-26] MEDS ORDERED: MAG HYDROX/AL HYDROX/SIMETH 30 ML UNIT-DOSE CUP PO PRN (15:15)
[2019-08-26 16:24] VITALS: BP 148/75; PULSE 68; TEMP 98.5
--- NOTE | 2019-08-30 16:36 | PATH ---
Surgical Pathology Report Patient Name: LATASHA CERVANTES [facility]. Rec. #: [id number] /Age/Gender: 1960 (Age: 59) / F Account: [id number] Location: ASU-ENDOSCOPY Taken: 08/26/2019 Received: 08/29/2019 Reported: 08/30/2019 Physicians: Derek Hays M.D. Specimen(s) Received OLD CBD STENT Clinical History History of choledocholithiasis, stent removal Final Diagnosis OLD CBD STENT, REMOVAL: BILIARY STENT. MACROSCOPIC DIAGNOSIS. Electronically Signed Katia Crenshaw M.D. Gross Description Received fresh labeled "old CBD stent," is a 15 cm in length blue, coiled portion of tubing, consistent with a biliary stent. No soft tissue is present. No sections are submitted, gross only. DL/08/29/2019 saudi/08/29/2019
== END 2019-08-26 16:05 | disposition home or self-care (01) ==
LOC: JASU-ENDO 08:02
PROVIDERS: ATTEND Internal Medicine Gastroenterology
PROC: 0FPB8DZ Removal of Intraluminal Device from Hepatobiliary Duct, Via Natural or Artificial Opening Endoscopic (ICD-10-PCS; 2019-08-26)
PROC: 0FC98ZZ Extirpation of Matter from Common Bile Duct, Via Natural or Artificial Opening Endoscopic (ICD-10-PCS; principal; 2019-08-26 08:45)
DX: K80.50 Calculus of bile duct without cholangitis or cholecystitis without obstruction (principal); Z46.59 Encounter for fitting and adjustment of other gastrointestinal appliance and device; Z96.89 Presence of other specified functional implants; Z90.49 Acquired absence of other specified parts of digestive tract
CPT/HCPCS: 76000-TC-FY; 88300-TC; J0131